=== PATIENT | female | born 1995 | race Two or more races ===

== ENCOUNTER 2024-03-16 02:18 | Emergency (ER) | payer MEDICAID, SELFPAY ==
--- NOTE | 2024-03-16 03:19 | EDNOTE_ITS ---
ED Female Urogenital RME/HPI General Chief complaint: Urogenital-Female Stated complaint: PAINFUL URINATION Time Seen by Provider: 03/16/24 03:14 Arrival date/time: 03/16/24 02:18 29F with no significant PMH presents to ED with 3 days of dysuria. Patient had about 2 weeks ago, but denies pelvic/flank pain and vaginal bleeding. Limitations: no limitations Related Data Previous Rx's ?Medication ?Instructions ?Recorded cefuroxime axetil 500 mg tablet 500 mg PO BID 7 days #14 tabs 03/16/24 Review of Systems Review of Systems Systems Reviewed: All systems reviewed, normal except as documented Constitutional Constitutional: Reports system reviewed and no additional complaints, except as documented, Denies fever(s) and Denies headache(s) ENT Ears, Nose, Mouth, and Throat: Denies disequilibrium and Denies headache(s) Cardiovascular Cardiovascular: Reports system reviewed and no additional complaints, except as documented, Denies chest pain and Denies dyspnea Respiratory Respiratory: Reports system reviewed and no additional complaints, except as documented, Denies cough and Denies dyspnea Gastrointestinal Gastrointestinal: Reports system reviewed and no additional complaints, except as documented, Denies abdominal pain, Denies nausea and Denies vomiting Genitourinary Genitourinary: Reports as per HPI and Reports dysuria Neurologic Neurologic: Reports system reviewed and no additional complaints, except as documented, Denies confusion, Denies disequilibrium and Denies headache(s) Psychiatric Psychiatric: Denies confusion Past Medical History Social History SMOKING STATUS: Never smoker ED Exam General Limitations: Present no limitations General appearance: Present alert and in no apparent distress Head Head exam: Present atraumatic Eye Eye exam: Present normal appearance, PERRL and EOMI ENT ENT exam: Present normal exam, normal oropharynx and mucous membranes moist Neck Neck exam: Present normal inspection, full ROM and trachea midline Chest Chest inspection: Present normal inspection and symmetric chest wall rise Respiratory Respiratory exam: Present normal lung sounds bilaterally Cardiovascular Cardiovascular exam: Present regular rate, normal rhythm and normal heart sounds Abdominal Exam Abdominal exam: Present soft and normal bowel sounds Extremities Exam Extremities exam: Present normal inspection and full ROM Back Exam Back exam: Present normal inspection and full ROM Neurological Exam Neurological exam: Present alert, oriented X3 and CN II-XII intact Psychiatric Psychiatric exam: Present normal affect and normal mood Skin Skin exam: Present warm, dry, intact and normal color Course Quality Measures none Orders Category Date Time Status Drug Screen,Urine Stat Lab 03/16/24 03:31 Completed Urinalysis, C/S if Indicated Stat Lab 03/16/24 03:31 Completed Urine Culture Stat Lab 03/16/24 03:31 Received cefuroxime axetiL [cefUROXime axetil] Med 03/16/24 04:07 Discontinued 500 mg PO X1 ONE Vital Signs Vital signs: Vital Signs Temperature 98.4 F 03/16/24 03:34 Pulse Rate 68 03/16/24 03:34 Respiratory Rate 18 03/16/24 03:34 Blood Pressure 127/87 H 03/16/24 03:34 Pulse Oximetry (%) 98 03/16/24 03:34 Oxygen Delivery Method Room Air 03/16/24 03:34 Urogenital - Female MDM Narrative MDM Narrative:: 29F with no significant PMH presents to ED with 3 days of dysuria. Patient had about 2 weeks ago, but denies pelvic/flank pain and vaginal bleeding. Physical exam reveals no flank tenderness. Patient is afebrile, calm, and alert. UA suggests UTI. Patient data External records reviewed:: [facility] previous records Clinical information provided by:: patient Social determinants that could affect healthcare access:: none Patient has the following chronic illnesses:: none How is presenting disease/condition affected by chronic disease/condition?: no chronic disease Evaluation data The following diagnostics were reviewed and interpreted by me:: lab results Lab and/or radiology exams considered but not ordered:: ordered Interpretation Summary: above Medications / Prescriptions Medications or Prescriptions considered but not ordered:: ordered Medication administrations:: Medication Administration History Discontinued Medications Cefuroxime Axetil (Cefuroxime Axetil 250 Mg Tablet) 500 mg PO X1 ONE Stop: 03/16/24 04:08 above Consultations Consultation(s) initiated? (list below): No Diagnosis Urogenital Female Differential Diagnosis: urinary tract infection, bacterial vaginosis, trichomoniasis, cervicitis, ovarian cyst, vaginitis, ruptured ovarian cyst, cyst of Bartholin's gland, cystitis and dysmenorrhea Most likely diagnosis given after review of the tests above:: UTI Admission Indicated Admission indicated?: not indicated Admission Request Was there a request for admission?: No Disposition Plan Disposition Plan: Discharge Discharge Attestation Discharge Attestation: The patient and all family members were given an opportunity to ask questions and understood the discharge instructions. Discharge instructions specifically effects, indications for sooner follow up or return to the emergency department, and the expected course of current diagnosis. Patient condition: Stable Discharge Plan Plan Patient Disposition: HOME (Self Care) Disposition Comment: Stable Prescriptions/Referrals Prescriptions/Med Rec: New cefuroxime axetil 500 mg tablet 500 mg PO BID 7 Days Qty: 14 0RF Problem List Clinical Impression: Urinary tract infection Patient/Caregiver Discharge Instructions Education Materials: ED CYSTITIS Female Adult Additional Instructions: Please follow-up with PCP within 24-48 hours and return immediately if symptoms worsen. Print Language: Tanzanian Stand Alone Forms: Patient Portal Info Letter RAINA/JERICA Supervising Physician RAINA/JERICA Supervising Physician: Dr. Smallwood
[2024-03-16 03:34] VITALS: BP 127/87; PULSE 68; RESP 18; TEMP 36.9; O2SAT 98
[2024-03-16 03:43] LABS: Collection Type, Urine Clean Catch
[2024-03-16 03:59] LABS: Bacteria,Urine 3+; Bilirubin,Urine Negative (Negative); Blood,Urine 3+ (Negative); Clarity,Urine Clear (Clear/Hazy); Color,Urine Yellow (Lt Yel-Yel); Culture Indicated,Urine Yes; Glucose, Urine Negative (Negative); Ketones,Urine Negative (Negative); Leukocyte Esterase,Urine Positive (Negative); Nitrite,Urine Negative (Negative); Protein,Urine Negative (Neg - Trace); RBC,Urine 34 /hpf (0-3); Specific Gravity,Urine 1.009 (1.001-1.035); Squamous Epithelial Cell,Urine 1 /hpf (0-5); Urobilinogen,Urine Negative mg/dL (0.0-1.0); WBC,Urine 38 /hpf (0-5)
[2024-03-16 04:02] LABS: Amphetamine/Methamp Scrn,U Negative (Negative); Barbiturate Screen,Urine Negative (Negative); Benzodiazepines Screen,Urine Negative (Negative); Benzoylecgonine Screen, Ur Negative (Negative); Fentanyl Screen,Urine Negative (Negative); Opiate Screen,Urine Negative (Negative); THC Screen,Urine Negative (Negative)
[2024-03-16] MEDS: cefuroxime axetiL 250 MG TABLET 500 MG PO (04:13)
[2024-03-16 04:18] VITALS: BMI 34.0
== END 2024-03-16 04:22 | disposition home or self-care (01) ==
LOC: SERX 06:24
PROVIDERS: Physician Assistant; Emergency Provider Emergency Medicine; PCP Family Medicine
DX: N39.0 Urinary tract infection, site not specified (principal)
CPT/HCPCS: 80307; 81001; 87077; 87086; 87186; 99283; A9270

== ENCOUNTER 2024-03-18 17:19 | Emergency (ER) | payer MEDICAID, SELFPAY ==
[2024-03-18 17:20] VITALS: BMI 32.0
[2024-03-18 17:38] VITALS: BP 125/90; PULSE 82; RESP 18; TEMP 36.9; O2SAT 97; BMI 36.3
--- NOTE | 2024-03-18 19:36 | PD.EDFMALE ---
ED Female Urogenital RME/HPI General Chief complaint: Urogenital-Female Stated complaint: PAIN WITH UA x 3 DAYS,FEELS SOMETHING IN VAGINA Time Seen by Provider: 03/18/24 18:27 Arrival date/time: 03/18/24 17:19 29F with no significant PMH presents to ED with 3 days of dysuria. Separately, patient feels like there's something in her vagina. Patient was here 3 days ago and diagnosed with UTI (registration has her under a different account and will merge them). UC showed E.coli sensitive to empiric ABX given to her. Patient also had a about 2 weeks ago. Limitations: no limitations Related Data Home Medications ?Medication ?Instructions ?Recorded ?Confirmed vit no.95-ferrous 1 tab PO QDAY 05/25/18 05/25/18 fumarate 28 mg-folic acid 800 mcg tablet () Previous Rx's ?Medication ?Instructions ?Recorded hydrocodone 5 mg-acetaminophen 325 1 tab PO Q6H PRN pain #10 tabs 06/01/18 mg tablet ([place]) ibuprofen 600 mg tablet 600 mg PO TID pain #20 tabs 06/01/18 acetaminophen 500 mg tablet 1,000 mg (2 x 500 mg) PO Q6H #30 11/28/23 (Tylenol Extra Strength) tabs diphenhydramine HCl 25 mg capsule 50 mg (2 x 25 mg) PO Q6H PRN 11/28/23 (Benadryl) allergy symptoms #10 caps ondansetron 4 mg disintegrating 4 mg PO Q8H PRN nausea and 11/28/23 tablet vomiting #10 tabs hydrocortisone 2.5 % topical cream 1 applic PA QDAY hemorrhoids #30 03/18/24 with perineal applicator grams (Anusol-HC) lidocaine 5 % topical ointment 1 applic topical BID PRN pain #30 03/18/24 grams Allergies Allergy/AdvReac Type Severity Reaction Status Date / Time No Known Allergies Allergy Verified 03/18/24 17:22 Review of Systems Review of Systems Systems Reviewed: All systems reviewed, normal except as documented Constitutional Constitutional: Reports system reviewed and no additional complaints, except as documented, Denies fever(s) and Denies headache(s) ENT Ears, Nose, Mouth, and Throat: Denies disequilibrium and Denies headache(s) Cardiovascular Cardiovascular: Reports system reviewed and no additional complaints, except as documented, Denies chest pain and Denies dyspnea Respiratory Respiratory: Reports system reviewed and no additional complaints, except as documented, Denies cough and Denies dyspnea Gastrointestinal Gastrointestinal: Reports system reviewed and no additional complaints, except as documented, Denies abdominal pain, Denies nausea and Denies vomiting Genitourinary Genitourinary: Reports as per HPI and Reports dysuria Neurologic Neurologic: Reports system reviewed and no additional complaints, except as documented, Denies confusion, Denies disequilibrium and Denies headache(s) Psychiatric Psychiatric: Denies confusion Past Medical History Past Medical History NEUROLOGIC: Negative Neurological Disorders or Seizures CARDIAC: Negative Cardiac Disorders or Congestive Heart Failure RESPIRATORY: Negative Chronic Obstructive Pulmonary Disease (COPD) GASTROINTESTINAL: Negative Gastrointestinal Disorders GENITOURINARY: Negative Genitourinary Disorders or Renal Disease MUSCULOSKELETAL: Negative Musculoskeletal Disorders ENDOCRINE: Negative Endocrine Disorders, Diabetes Mellitus Type 1 or Diabetes Mellitus Type 2 HEMATOLOGIC: Negative Blood Disorders OTHER HISTORY: Positive Chicken Pox (as child); Negative Autoimmune Disease, Blood Transfusions, Blood Transfusion Reaction or Anesthesia Reactions Family History FAMILY HISTORY: Negative Family Psychiatric Problems, Family Respiratory Disorders, Family Cardiac Disorders, Family Gastrointestinal Problems, Family Cancer, Family Surgery or Family Anesthesia Reaction Surgical History SURGICAL: Negative Section Social History SMOKING STATUS: Never smoker SECOND HAND EXPOSURE: No ED Exam General Limitations: Present no limitations General appearance: Present alert and in no apparent distress Head Head exam: Present atraumatic Eye Eye exam: Present normal appearance, PERRL and EOMI ENT ENT exam: Present normal exam, normal oropharynx and mucous membranes moist Neck Neck exam: Present normal inspection, full ROM and trachea midline Chest Chest inspection: Present normal inspection and symmetric chest wall rise Respiratory Respiratory exam: Present normal lung sounds bilaterally Cardiovascular Cardiovascular exam: Present regular rate, normal rhythm and normal heart sounds Abdominal Exam Abdominal exam: Present soft and normal bowel sounds External exam: Present other (prolapse) Extremities Exam Extremities exam: Present normal inspection and full ROM Back Exam Back exam: Present normal inspection and full ROM Neurological Exam Neurological exam: Present alert, oriented X3 and CN II-XII intact Psychiatric Psychiatric exam: Present normal affect and normal mood Skin Skin exam: Present warm, dry, intact and normal color Course Quality Measures none Orders Category Date Time Status Pelvic Exam X1 Care 03/18/24 18:28 Active Vital Signs Vital signs: Vital Signs Temperature 98.5 F 03/18/24 17:38 Pulse Rate 82 03/18/24 17:38 Respiratory Rate 18 03/18/24 17:38 Blood Pressure 125/90 H 03/18/24 17:38 Pulse Oximetry (%) 97 03/18/24 17:38 Oxygen Delivery Method Room Air 03/18/24 17:38 O2 at 97% on RA and WNLs Urogenital - Female MDM Narrative MDM Narrative:: 29F with no significant PMH presents to ED with 3 days of dysuria. Separately, patient feels like there's something in her vagina. Patient was here 3 days ago and diagnosed with UTI (registration has her under a different account and will merge them). UC showed E.coli sensitive to empiric ABX given to her. Patient also had a about 2 weeks ago. 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 Patient is afebrile, calm, and alert. [employer] Supervisor given. Patient counseled to keep taking ABX. Patient declines IM Rocephin as UTI symptoms are improving. Patient data External records reviewed:: [facility] previous records Clinical information provided by:: patient Social determinants that could affect healthcare access:: none Patient has the following chronic illnesses:: none How is presenting disease/condition affected by chronic disease/condition?: no chronic disease Evaluation data The following diagnostics were reviewed and interpreted by me:: other (specify) (none) Lab and/or radiology exams considered but not ordered:: not ordered Interpretation Summary: n/a Medications / Prescriptions Medications or Prescriptions considered but not ordered:: not ordered Medication administrations:: n/a Consultations Consultation(s) initiated? (list below): No Diagnosis Urogenital Female Differential Diagnosis: urinary tract infection, bacterial vaginosis, trichomoniasis, cervicitis, ovarian cyst, vaginitis, ruptured ovarian cyst, cyst of Bartholin's gland, cystitis, dysmenorrhea and other (UTI and vaginal prolapse) Most likely diagnosis given after review of the tests above:: UTI and vaginal prolapse Admission Indicated Admission indicated?: not indicated Admission Request Was there a request for admission?: No Disposition Plan Disposition Plan: Discharge Discharge Attestation Discharge Attestation: The patient and all family members were given an opportunity to ask questions and understood the discharge instructions. Discharge instructions specifically effects, indications for sooner follow up or return to the emergency department, and the expected course of current diagnosis. Patient condition: Stable Discharge Plan Plan Patient Disposition: HOME (Self Care) Disposition Comment: Stable Prescriptions/Referrals Prescriptions/Med Rec: New lidocaine 5 % ointment 1 applic topical BID PRN (Reason: pain) Qty: 30 0RF hydrocortisone [Anusol-HC] 2.5 % cream with perineal applicator 1 applic PA QDAY Qty: 30 0RF No Action PNV cmb#95-ferrous fumarate-FA [] 28 mg iron- 800 mcg Tablet 1 tab PO QDAY ibuprofen 600 mg tablet 600 mg PO TID MDD 6 Qty: 20 0RF hydrocodone-acetaminophen [[place]] 5-325 mg tablet 1 tab PO Q6H MDD 4 PRN (Reason: pain) Qty: 10 0RF diphenhydramine HCl [Benadryl] 25 mg capsule 50 mg PO Q6H PRN (Reason: allergy symptoms) Qty: 10 0RF acetaminophen [Tylenol Extra Strength] 500 mg tablet 1,000 mg PO Q6H Qty: 30 0RF ondansetron 4 mg tablet,disintegrating 4 mg PO Q8H PRN (Reason: nausea and vomiting) Qty: 10 0RF Problem List Clinical Impression: Prolapse of female pelvic organs, Hemorrhoid Patient/Caregiver Discharge Instructions Education Materials: Pelvic Organ Prolapse, Pelvic Organ Prolapse ..., Pelvic Organ Prolapse Surgery ..., ED Hemorrhoids Additional Instructions: Please follow-up with PCP/OBGYN within 24-48 hours and return immediately if symptoms worsen. Use steroid cream every day for symptoms. Use lidocaine cream 15 min before having bowel movement. Print Language: Vincentian Stand Alone Forms: Patient Portal Info Letter RAINA/JERICA Supervising Physician RAINA/JERICA Supervising Physician: Dr. Pickering
== END 2024-03-18 19:52 | disposition home or self-care (01) ==
LOC: SERX 19:59
PROVIDERS: Emergency Provider Emergency Medicine; PCP Family Medicine
DX: K64.9 Unspecified hemorrhoids (principal); N81.4 Uterovaginal prolapse, unspecified; N39.0 Urinary tract infection, site not specified
CPT/HCPCS: 99283

== ENCOUNTER 2024-04-08 15:53 | Emergency (ER) | payer MEDICAID, SELFPAY ==
[2024-04-08 15:56] VITALS: BMI 36.9
[2024-04-08 16:18] VITALS: BP 125/84; PULSE 60; RESP 16; TEMP 36.8; O2SAT 99
--- NOTE | 2024-04-08 16:28 | XR_ITS ---
Examination: Abdomen sonogram, Limited Date and time of exam: April 08, 2024 at 1635 hrs. Indications: Right upper abdominal pain and nausea beginning one week ago Technique: Real-time jorgensen scale transabdominal sonographic images of the upper abdomen obtained. Findings: 17 mm gallstone Gallbladder wall 0.3 cm Common bile duct 0.2 cm Pancreatic head 1.7 cm Liver 18.3 cm fatty infiltration no focal liver lesions Normal hepatopedal portal venous flow Patent IVC Impression: Cholelithiasis, negative for cholecystitis Mild hepatomegaly fatty liver
--- NOTE | 2024-04-08 16:29 | EDRME_ITS ---
Rapid Medical Screening Exam RME Arrival date/time: 04/08/24 15:53 29-year-old female presents emergency department today with 2 separate complaints patient reports pain in the right upper quadrant ports history of gallstones during patient approximately 1 month patient also reports that she is having pain at her site which she has followed up with her [employer] SUPERVISOR already Chief Complaint: Abdominal Pain Time Seen by Provider: 04/08/24 16:19 Vital signs: Vital Signs Temperature 98.2 F 04/08/24 16:18 Pulse Rate 60 04/08/24 16:18 Respiratory Rate 16 04/08/24 16:18 Blood Pressure 125/84 04/08/24 16:18 Pulse Oximetry (%) 99 04/08/24 16:18 Oxygen Delivery Method Room Air 04/08/24 16:18
[2024-04-08 17:00] LABS: Basophils # (Auto) 0.1 Thou/mm3 (0.0-0.2); Basophils % (Auto) 1 % (0-2.5); Eosinophils # (Auto) 0.4 Thou/mm3 (0.0-0.5); Eosinophils % (Auto) 4 % (0-10); Hematocrit 38.4 % (36.0-46.0); Hemoglobin 12.6 g/dL (12.0-16.0); Immature Granulocytes % (Auto) 0 % (0-0); Immature Granulocytes Auto 0.03 Thou/mm3 (0.00-0.00); Lymphocytes # (Auto) 4.9 Thou/mm3 (1.0-4.8); Lymphocytes % (Auto) 45 % (10-50); Mean Corpuscular HGB Conc 32.8 g/dl (31.0-37.0); Mean Corpuscular Hemoglobin 28.3 pg (25.0-35.0); Mean Corpuscular Volume 86 fL (80-100); Monocytes # (Auto) 0.6 Thou/mm3 (0.0-0.8); Monocytes % (Auto) 6 % (0-12); Neutrophils % (Auto) 45 % (37-80); Nucleated Red Blood Cell % 0 /100 WBC (0); Platelet Count 330 Thou/mm3 (140-440); RDW Standard Deviation 45.4 fL (36.4-46.3); Red Blood Count 4.46 Miln/mm3 (4.00-5.20)
--- NOTE | 2024-04-08 17:12 | EDNOTE_ITS ---
ED Abdominal Pain RME/HPI General Chief Complaint: Abdominal Pain Stated complaint: PAIN TO SITE, GALLBLADDER PAIN Time seen by provider: 04/08/24 16:19 Arrival date/time: 04/08/24 15:53 RME / HPI RME / HPI narrative: 29-year-old female presents emergency department today with 2 separate complaints patient reports pain in the right upper quadrant ports history of gallstones during patient approximately 1 month patient also reports that she is having pain at her site which she has followed up with her [facility]IOR [facility] A[facility] SPECIALIST already. Patient denies any fever denies any vomiting denies any other complaints. She had her section done in [place]. Related Data Home Medications ?Medication ?Instructions ?Recorded ?Confirmed vit no.95-ferrous 1 tab PO QDAY 05/25/18 05/25/18 fumarate 28 mg-folic acid 800 mcg tablet () Previous Rx's ?Medication ?Instructions ?Recorded hydrocodone 5 mg-acetaminophen 325 1 tab PO Q6H PRN pain #10 tabs 06/01/18 mg tablet ([place]) ibuprofen 600 mg tablet 600 mg PO TID pain #20 tabs 06/01/18 acetaminophen 500 mg tablet 1,000 mg (2 x 500 mg) PO Q6H #30 11/28/23 (Tylenol Extra Strength) tabs diphenhydramine HCl 25 mg capsule 50 mg (2 x 25 mg) PO Q6H PRN 11/28/23 (Benadryl) allergy symptoms #10 caps ondansetron 4 mg disintegrating 4 mg PO Q8H PRN nausea and 11/28/23 tablet vomiting #10 tabs hydrocortisone 2.5 % topical cream 1 applic IN QDAY hemorrhoids #30 03/18/24 with perineal applicator grams (Anusol-HC) lidocaine 5 % topical ointment 1 applic topical BID PRN pain #30 03/18/24 grams cefuroxime axetil 500 mg tablet 500 mg PO BID #14 tabs 04/08/24 dicyclomine 20 mg tablet 20 mg PO TID PRN abdominal pain 04/08/24 #20 tabs Allergies Allergy/AdvReac Type Severity Reaction Status Date / Time No Known Allergies Allergy Verified 04/08/24 15:55 Review of Systems Review of Systems Narrative Review of Systems: Review of system reviewed and within normal limits except mentioned in HPI ED Exam Narrative Physical exam: VITAL SIGNS: Reviewed. GENERAL APPEARANCE: Alert and interactive, follows commands, no acute distress, HEAD AND FACE: Non-traumatic. ENT: PERRL, pink conjunctivitis, eyelid no trauma, Mucous membrane moist. NECK: Supple, nontender, no nuchal rigidity. CHEST: No tenderness, no crepitus, no paradoxical movement, no retractions. LUNGS: Clear, well ventilated, symmetric, no rales, no wheezing, no ronchi, no stridor, good breath sounds bilaterally. HEART: Regular rate, regular rhythm, no murmur, no gallops. ABDOMEN: Soft, positive bowel sounds, nondistended, no guarding, right upper quadrant tenderness, no rebound, no masses, RECTAL: Deferred. GENITAL: Deferred. NEUROLOGICAL: Gross motor function intact sensory function intact, Appropriate for age. MUSCULOSKELETAL: low back nontender, full range of motion. EXTREMITIES: Nontender, full range of motion. SKIN: Color pink, dry, no rash, no lacerations, no abrasions, no contusions. LYMPHATICS: Deferred. Course Quality Measures none Orders Category Date Time Status US gall bladder Stat Exams 04/08/24 16:28 Completed CBC Stat Lab 04/08/24 16:48 Completed Comprehensive Metabolic Panel Stat Lab 04/08/24 16:48 Completed HCG Qualitative,Urine Stat Lab 04/08/24 17:05 Completed Lipase Stat Lab 04/08/24 16:48 Completed UA, C/S IF [Urinalysis, C/S if Indicated] Stat Lab 04/08/24 17:05 Completed Urine Culture Stat Lab 04/08/24 17:05 Received Dicyclomine [Bentyl] Med 04/08/24 17:20 Discontinued 20 mg PO X1 ONE Ketorolac Inj [Toradol Inj] Med 04/08/24 17:20 Discontinued 30 mg IM X1 ONE cephALEXin [Keflex] Med 04/08/24 18:33 Discontinued 500 mg PO X1 ONE Vital Signs Vital signs: Vital Signs Temperature 98.2 F 04/08/24 16:18 Pulse Rate 60 04/08/24 16:18 Respiratory Rate 16 04/08/24 16:18 Blood Pressure 125/84 04/08/24 16:18 Pulse Oximetry (%) 99 04/08/24 16:18 Oxygen Delivery Method Room Air 04/08/24 16:18 Abdominal Pain MDM MDM Narrative MDM Narrative:: 29-year-old female presents emergency department today with 2 separate complaints patient reports pain in the right upper quadrant ports history of gallstones during patient approximately 1 month patient also reports that she is having pain at her site which she has followed up with her [facility] AFFA[facility] SPECIALIST already. Patient denies any fever denies any vomiting denies any other complaints. She had her section done in [place]. Patient data External records reviewed:: None Clinical information provided by:: patient Social determinants that could affect healthcare access:: none Patient has the following chronic illnesses:: None How is presenting disease/condition affected by chronic disease/condition?: no chronic disease Evaluation data The following diagnostics were reviewed and interpreted by me:: lab results and radiology exam(s) Lab and/or radiology exams considered but not ordered:: None Interpretation Summary: Patient tested positive for UTI. Ultrasound of the gallbladder showed cholelithiasis with no sign of acute cholecystitis. Results discussed with the patient. Medications / Prescriptions Medications or Prescriptions considered but not ordered:: None Medication administrations:: Medication Administration History Discontinued Medications Cephalexin HCl (Cephalexin 250 Mg Capsule) 500 mg PO X1 ONE Stop: 04/08/24 18:34 Dicyclomine HCl (Dicyclomine 10 Mg Capsule) 20 mg PO X1 ONE Stop: 04/08/24 17:21 Last Admin: 04/08/24 17:40 Dose: 20 mg Documented By: MEJIA Ketorolac Tromethamine (Ketorolac Inj 60 Mg/2 Ml Vial) 30 mg IM X1 ONE Stop: 04/08/24 17:21 Last Admin: 04/08/24 17:41 Dose: 30 mg Documented By: MEJIA Toradol, Bentyl and Keflex Consultations Consultation(s) initiated? (list below): No Diagnosis Differential diagnosis abdominal pain: abdominal pain, calculus of kidney and other (: Cholelithiasis, UTI) Most likely diagnosis given after review of the tests above:: Cholelithiasis, UTI Admission Indicated Admission indicated?: not indicated Admission Request Was there a request for admission?: No Admission Attestation Admission request attestation: Stable Disposition Plan Disposition Plan: Discharge Discharge Attestation Discharge Attestation: The patient was given an opportunity to ask questions and understood the discharge instructions. Discharge instructions specifically effects, indications for sooner follow up or return to the emergency department, and the expected course of current diagnosis. Patient condition: Stable Discharge Plan Plan Patient Disposition: HOME (Self Care) Disposition Comment: stable Prescriptions/Referrals Prescriptions/Med Rec: New cefuroxime axetil 500 mg tablet 500 mg PO BID Qty: 14 0RF dicyclomine 20 mg tablet 20 mg PO TID PRN (Reason: abdominal pain) Qty: 20 0RF No Action PNV cmb#95-ferrous fumarate-FA [] 28 mg iron- 800 mcg Tablet 1 tab PO QDAY ibuprofen 600 mg tablet 600 mg PO TID MDD 6 Qty: 20 0RF hydrocodone-acetaminophen [[place]] 5-325 mg tablet 1 tab PO Q6H MDD 4 PRN (Reason: pain) Qty: 10 0RF diphenhydramine HCl [Benadryl] 25 mg capsule 50 mg PO Q6H PRN (Reason: allergy symptoms) Qty: 10 0RF acetaminophen [Tylenol Extra Strength] 500 mg tablet 1,000 mg PO Q6H Qty: 30 0RF ondansetron 4 mg tablet,disintegrating 4 mg PO Q8H PRN (Reason: nausea and vomiting) Qty: 10 0RF lidocaine 5 % ointment 1 applic topical BID PRN (Reason: pain) Qty: 30 0RF hydrocortisone [Anusol-HC] 2.5 % cream with perineal applicator 1 applic IN QDAY Qty: 30 0RF Referrals: Kem Wynn MD [Primary Care Provider] - In 1 week Problem List Clinical Impression: Gallstone, UTI (urinary tract infection) Patient/Caregiver Discharge Instructions Discharge Activity: activity as tolerated Education Materials: What Are Gallstones Additional Instructions: Thank you for the opportunity for serving you today. You are stable for discharged . You are advised to: Follow-up with your PCP in 1 to 2 days Return to ED for worsening of symptoms Increase oral fluids Take medication as prescribed Print Language: Greenlandic Stand Alone Forms: Layne Award Info., Patient Portal Info Letter PA/JERICA Supervising Physician RAINA/JERICA Supervising Physician: MD Ansley
[2024-04-08 17:17] LABS: Collection Type, Urine Clean Catch
[2024-04-08 17:20] LABS: Alanine Aminotransferase 23 U/L (10-49); Albumin, Serum 4.1 gm/dL (3.5-5.0); Albumin/Globulin Ratio 1.5 (1.2-2.2); Alkaline Phosphatase 84 U/L (46-116); Anion Gap 8 (7-16); Aspartate Amino Transferase 16 U/L (0-34); BUN/Creatinine Ratio 19 Ratio (12-20); Bilirubin,Total 0.2 mg/dL (0.3-1.2); Blood Urea Nitrogen 13 mg/dL (9-23); Carbon Dioxide 25.3 mMol/L (20.0-31.0); Chloride 108 mMol/L (98-107); Creatinine (Component) 0.7 mg/dL (0.6-1.3); Estimated Creatinine Clearance 123.8 mL/min (>60); Globulin 2.7 gm/dL (2.3-3.5); Glucose 80 mg/dL (74-106); Lipase 61 U/L (12-53); Osmolality,Calculated 280 (275-295); Potassium 4.1 mMol/L (3.4-5.1); Sodium 141 mMol/L (136-145); Total Protein 6.8 gm/dL (5.7-8.2); eGFR > 60 See Note
[2024-04-08 17:31] LABS: Amorphous Crystals,Urine Present (Absent); Bacteria,Urine 3+; Bilirubin,Urine Negative (Negative); Blood,Urine Negative (Negative); Clarity,Urine Turbid (Clear/Hazy); Color,Urine Yellow (Lt Yel-Yel); Culture Indicated,Urine Yes; Glucose, Urine Negative (Negative); Ketones,Urine Negative (Negative); Leukocyte Esterase,Urine Positive (Negative); Nitrite,Urine Negative (Negative); Protein,Urine Trace (Neg - Trace); RBC,Urine 3 /hpf (0-3); Specific Gravity,Urine 1.023 (1.001-1.035); Squamous Epithelial Cell,Urine 10 /hpf (0-5); Urobilinogen,Urine Negative mg/dL (0.0-1.0); WBC,Urine 16 /hpf (0-5)
[2024-04-08 17:33] LABS: HCG Qualitative,Urine Negative
[2024-04-08] MEDS: DICYCLOMINE 10 MG CAPSULE 20 MG PO (17:40)
[2024-04-08] MEDS: KETOROLAC INJ 60 MG/2 ML VIAL 30 MG IM (17:41)
[2024-04-08] MEDS: cephALEXin 250 MG CAPSULE 500 MG PO (19:03)
== END 2024-04-08 19:06 | disposition home or self-care (01) ==
PROVIDERS: Nurse Practitioner Primary Care; Emergency Provider Emergency Medicine; PCP Family Medicine
DX: K80.20 Calculus of gallbladder without cholecystitis without obstruction (principal); N39.0 Urinary tract infection, site not specified
CPT/HCPCS: 36415; 76705; 80053; 81001; 81025; 83690; 85025; 87086; 96372; 99284; J1885; A9270

== ENCOUNTER 2024-05-18 18:46 | Emergency (ER) | payer MEDICAID, SELFPAY ==
[2024-05-18 19:20] VITALS: BP 121/78; PULSE 63; RESP 16; TEMP 37.1; O2SAT 99; BMI 36.3
[2024-05-18] MEDS: ACETAMINOPHEN 500 MG TABLET 1000 MG PO (19:29)
[2024-05-18] MEDS: MAGNESIUM CITRATE 300 ML BTL PO (19:31)
--- NOTE | 2024-05-18 21:29 | PD.EDABDPN ---
ED Abdominal Pain RME/HPI General Chief Complaint: Abdominal Pain Stated complaint: NO BM IN 10 DAYS Time seen by provider: 05/18/24 19:21 Arrival date/time: 05/18/24 18:46 29F with no significant PMH presents to ED with 1 week of no BM. Patient went to PCP who gave lactulose, which provided minimal relief. Limitations: no limitations Related Data Home Medications ?Medication ?Instructions ?Recorded ?Confirmed vit no.95-ferrous 1 tab PO QDAY 05/25/18 05/25/18 fumarate 28 mg-folic acid 800 mcg tablet () Previous Rx's ?Medication ?Instructions ?Recorded hydrocodone 5 mg-acetaminophen 325 1 tab PO Q6H PRN pain #10 tabs 06/01/18 mg tablet ([place]) ibuprofen 600 mg tablet 600 mg PO TID pain #20 tabs 06/01/18 acetaminophen 500 mg tablet 1,000 mg (2 x 500 mg) PO Q6H #30 11/28/23 (Tylenol Extra Strength) tabs diphenhydramine HCl 25 mg capsule 50 mg (2 x 25 mg) PO Q6H PRN 11/28/23 (Benadryl) allergy symptoms #10 caps ondansetron 4 mg disintegrating 4 mg PO Q8H PRN nausea and 11/28/23 tablet vomiting #10 tabs hydrocortisone 2.5 % topical cream 1 applic OR QDAY hemorrhoids #30 03/18/24 with perineal applicator grams (Anusol-HC) lidocaine 5 % topical ointment 1 applic topical BID PRN pain #30 03/18/24 grams cefuroxime axetil 500 mg tablet 500 mg PO BID #14 tabs 04/08/24 dicyclomine 20 mg tablet 20 mg PO TID PRN abdominal pain 04/08/24 #20 tabs Allergies Allergy/AdvReac Type Severity Reaction Status Date / Time No Known Allergies Allergy Verified 05/18/24 18:51 Review of Systems Review of Systems Systems Reviewed: All systems reviewed, normal except as documented Constitutional Constitutional: Reports system reviewed and no additional complaints, except as documented, Denies fever(s) and Denies headache(s) ENT Ears, Nose, Mouth, and Throat: Denies disequilibrium and Denies headache(s) Cardiovascular Cardiovascular: Reports system reviewed and no additional complaints, except as documented, Denies chest pain and Denies dyspnea Respiratory Respiratory: Reports system reviewed and no additional complaints, except as documented, Denies cough and Denies dyspnea Gastrointestinal Gastrointestinal: Reports system reviewed and no additional complaints, except as documented, Reports as per HPI, Denies abdominal pain, Reports constipation, Denies nausea and Denies vomiting Neurologic Neurologic: Reports system reviewed and no additional complaints, except as documented, Denies confusion, Denies disequilibrium and Denies headache(s) Psychiatric Psychiatric: Denies confusion Past Medical History Past Medical History NEUROLOGIC: Negative Neurological Disorders or Seizures CARDIAC: Negative Cardiac Disorders or Congestive Heart Failure RESPIRATORY: Negative Chronic Obstructive Pulmonary Disease (COPD) GASTROINTESTINAL: Negative Gastrointestinal Disorders GENITOURINARY: Negative Genitourinary Disorders or Renal Disease MUSCULOSKELETAL: Negative Musculoskeletal Disorders ENDOCRINE: Negative Endocrine Disorders, Diabetes Mellitus Type 1 or Diabetes Mellitus Type 2 HEMATOLOGIC: Negative Blood Disorders OTHER HISTORY: Positive Chicken Pox (as child); Negative Autoimmune Disease, Blood Transfusions, Blood Transfusion Reaction or Anesthesia Reactions Family History FAMILY HISTORY: Negative Family Psychiatric Problems, Family Respiratory Disorders, Family Cardiac Disorders, Family Gastrointestinal Problems, Family Cancer, Family Surgery or Family Anesthesia Reaction Surgical History SURGICAL: Negative Section Social History SMOKING STATUS: Light (< 1 pack/day) SECOND HAND EXPOSURE: No ED Exam General Limitations: Present no limitations General appearance: Present alert and in no apparent distress Head Head exam: Present atraumatic Eye Eye exam: Present normal appearance, PERRL and EOMI ENT ENT exam: Present normal exam, normal oropharynx and mucous membranes moist Neck Neck exam: Present normal inspection, full ROM and trachea midline Chest Chest inspection: Present normal inspection and symmetric chest wall rise Respiratory Respiratory exam: Present normal lung sounds bilaterally Cardiovascular Cardiovascular exam: Present regular rate, normal rhythm and normal heart sounds Abdominal Exam Abdominal exam: Present soft and normal bowel sounds Extremities Exam Extremities exam: Present normal inspection and full ROM Back Exam Back exam: Present normal inspection and full ROM Neurological Exam Neurological exam: Present alert, oriented X3 and CN II-XII intact Psychiatric Psychiatric exam: Present normal affect and normal mood Skin Skin exam: Present warm, dry, intact and normal color Course Quality Measures none Orders Category Date Time Status Enema Administration NOW Care 05/18/24 19:21 Completed Acetaminophen Tab [Tylenol ES Tab] Med 05/18/24 19:21 Discontinued 1,000 mg PO X1 ONE Magnesium Citrate Liqd [Citrate of Magnesia Liqd] Med 05/18/24 19:21 Discontinued 300 ml PO X1 ONE Vital Signs Vital signs: Vital Signs Temperature 98.7 F 05/18/24 19:20 Pulse Rate 63 05/18/24 19:20 Respiratory Rate 16 05/18/24 19:20 Blood Pressure 121/78 05/18/24 19:20 Pulse Oximetry (%) 99 05/18/24 19:20 Oxygen Delivery Method Room Air 05/18/24 19:20 O2 at 99% on RA and WNLs Abdominal Pain MDM MDM Narrative MDM Narrative:: 29F with no significant PMH presents to ED with 1 week of no BM. Patient went to PCP who gave lactulose, which provided minimal relief. Physical exam reveals no ab tenderness. Patient is afebrile, calm, and alert. Patient wants to have BM at home. Will try mag citrate and saline enema (to take home with instructions). Patient data External records reviewed:: [facility] previous records Clinical information provided by:: patient Social determinants that could affect healthcare access:: none Patient has the following chronic illnesses:: none How is presenting disease/condition affected by chronic disease/condition?: no chronic disease Evaluation data The following diagnostics were reviewed and interpreted by me:: other (specify) (none) Lab and/or radiology exams considered but not ordered:: not ordered Interpretation Summary: n/a Medications / Prescriptions Medications or Prescriptions considered but not ordered:: ordered Medication administrations:: Medication Administration History Discontinued Medications Acetaminophen (Acetaminophen 500 Mg Tablet) 1,000 mg PO X1 ONE Stop: 05/18/24 19:22 Last Admin: 05/18/24 19:29 Dose: 1,000 mg Documented By: Magnesium Citrate (Magnesium Citrate 300 Ml Btl) 300 ml PO X1 ONE Stop: 05/18/24 19:22 Last Admin: 05/18/24 19:31 Dose: 300 ml Documented By: above Consultations Consultation(s) initiated? (list below): No Diagnosis Differential diagnosis abdominal pain: abdominal pain, acute appendicitis, calculus of kidney, constipation, diverticulitis, endometriosis, gastroenteritis, pancreatitis and small bowel obstruction Most likely diagnosis given after review of the tests above:: constipation Admission Indicated Admission indicated?: not indicated Admission Request Was there a request for admission?: No Disposition Plan Disposition Plan: Discharge Discharge Attestation Discharge Attestation: The patient and all family members were given an opportunity to ask questions and understood the discharge instructions. Discharge instructions specifically effects, indications for sooner follow up or return to the emergency department, and the expected course of current diagnosis. Patient condition: Stable Discharge Plan Plan Patient Disposition: HOME (Self Care) Disposition Comment: Stable Prescriptions/Referrals Prescriptions/Med Rec: No Action PNV cmb#95-ferrous fumarate-FA [] 28 mg iron- 800 mcg Tablet 1 tab PO QDAY ibuprofen 600 mg tablet 600 mg PO TID MDD 6 Qty: 20 0RF hydrocodone-acetaminophen [[place]] 5-325 mg tablet 1 tab PO Q6H MDD 4 PRN (Reason: pain) Qty: 10 0RF cefuroxime axetil 500 mg tablet 500 mg PO BID Qty: 14 0RF dicyclomine 20 mg tablet 20 mg PO TID PRN (Reason: abdominal pain) Qty: 20 0RF diphenhydramine HCl [Benadryl] 25 mg capsule 50 mg PO Q6H PRN (Reason: allergy symptoms) Qty: 10 0RF acetaminophen [Tylenol Extra Strength] 500 mg tablet 1,000 mg PO Q6H Qty: 30 0RF ondansetron 4 mg tablet,disintegrating 4 mg PO Q8H PRN (Reason: nausea and vomiting) Qty: 10 0RF lidocaine 5 % ointment 1 applic topical BID PRN (Reason: pain) Qty: 30 0RF hydrocortisone [Anusol-HC] 2.5 % cream with perineal applicator 1 applic OR QDAY Qty: 30 0RF Problem List Clinical Impression: Constipation Patient/Caregiver Discharge Instructions Education Materials: ED Constipation (Adult) Additional Instructions: Please follow-up with PCP within 24-48 hours and return immediately if symptoms worsen. Print Language: Nepalese Stand Alone Forms: Patient Portal Info Letter PA/TOBACCO STEMMER Supervising Physician PA/TOBACCO STEMMER Supervising Physician: Dr. Montes
== END 2024-05-18 19:32 | disposition home or self-care (01) ==
LOC: SERX 19:39
PROVIDERS: Emergency Provider Emergency Medicine; PCP Nurse Practitioner Primary Care
DX: K59.00 Constipation, unspecified (principal)
CPT/HCPCS: 99283; A9270

== ENCOUNTER 2024-07-22 18:45 | Emergency (ER) | payer MEDICAID, SELFPAY ==
[2024-07-22 19:23] VITALS: BP 133/89; PULSE 84; RESP 18; TEMP 37.2; O2SAT 98; BMI 35.3
--- NOTE | 2024-07-22 19:49 | XR_ITS ---
Examination: AP chest single view TECHNIQUE: AP portable upright chest single view Exam date time: July 22, 20242003 hours INDICATIONS: Shortness of breath today. FINDINGS: Normal heart size. Lungs are clear. Osseous structures are intact. IMPRESSION: No active disease.
--- NOTE | 2024-07-22 19:50 | EDNOTE_ITS ---
<Statement entered by Sheri May MD - 07/23/24 04:25> As co-signing physician, I was present and available for consult prn. I concur with the plan and care as documented by the midlevel provider. ED SOB =RME/HPI General Chief Complaint: Shortness of Breath/Dyspnea Stated Complaint: SOB, CHEST PRESSURE Time Seen by Provider: 07/22/24 19:37 Arrival date/time: 07/22/24 18:45 RME / HPI RME / HPI Narrative: 29-year-old female patient with no significant medical history, came in for evaluation regarding shortness of breath and chest discomfort. Everything happened since last night after patient inhaled a toxic substance while opening a can bottle. Patient is denying any cough. Denies any chest pain denies any fever denies any other complaints no medication was taken prior to arrival. Related Data Home Medications ?Medication ?Instructions ?Recorded ?Confirmed vit no.95-ferrous 1 tab PO QDAY 05/25/18 03/0 09/07 fumarate 28 mg-folic acid 800 mcg tablet () Previous Rx's ?Medication ?Instructions ?Recorded hydrocodone 5 mg-acetaminophen 325 1 tab PO Q6H PRN pa in #10 tabs 06/01/18 mg tablet ([place]) ibuprofen 600 mg tablet 600 mg PO TID pain #20 tabs 06/01/18 acetaminophen 500 mg tablet 1,000 mg (2 x 500 mg) PO Q 6H #30 11/28/23 (Tylenol Extra Strength) tabs diphenhydramine HCl 25 mg capsule 50 mg (2 x 25 mg) PO Q6H PRN 11/28/23 (Benadryl) allergy symptoms #10 caps ondansetron 4 mg disintegrating 4 mg PO Q8H PRN nausea and 11/28/23 tablet vomiting #10 tabs hydrocortisone 2.5 % topical cream 1 applic FL QDAY he morrhoids #30 03/18/24 with perineal applicator grams (Anusol-HC) lidocaine 5 % topical ointment 1 applic topical BID FL N pain #30 03/18/24 grams cefuroxime axetil 500 mg tablet 500 mg PO BID #14 tabs 04/08/24 dicyclomine 20 mg tablet 20 mg PO TID PRN abdominal p ain 04/08/24 #20 tabs albuterol sulfate 90 mcg/actuation 2 inh inhalation Q6 H PRN shortness 07/22/24 aerosol inhaler of breath or wheezing #8.5 g boris prednisone 50 mg tablet 50 mg PO QDAY #3 tabs Allergies Allergy/AdvReac Type Severity Reaction Status Date / Time No Known Allergies Allergy Verified 05/18/24 18:51 Review of Systems Review of Systems Narrative Review of Systems: Review of system reviewed and within normal limits except mentioned in HPI ED Exam Narrative Physical exam: VITAL SIGNS: Reviewed. GENERAL APPEARANCE: Alert and interactive, follows commands, no acute distress, HEAD AND FACE: Non-traumatic. ENT: PERRL, pink conjunctivitis, eyelid no trauma, Mucous membrane moist. NECK: Supple, nontender, no nuchal rigidity. CHEST: No tenderness, no crepitus, no paradoxical movement, no retractions. LUNGS: Clear, well ventilated, symmetric, no rales, no wheezing, no ronchi, no stridor, good breath sounds bilaterally. HEART: Regular rate, regular rhythm, no murmur, no gallops. ABDOMEN: Soft, positive bowel sounds, nondistended, no guarding, nontender, no rebound, no masses, RECTAL: Deferred. GENITAL: Deferred. NEUROLOGICAL: Gross motor function intact sensory function intact, Appropriate for age. MUSCULOSKELETAL: low back nontender, full range of motion. EXTREMITIES: Nontender, full range of motion. SKIN: Color pink, dry, no rash, no lacerations, no abrasions, no contusions. LYMPHATICS: Deferred. Course Quality Measures none Orders Category Date Time Status XR chest 1V Stat Exams 07/22/24 19:49 Completed predniSONE Med 07/22/24 19:49 Discontinued 60 mg PO X1 ONE Vital Signs Vital signs: Vital Signs Temperature 98.9 F 07/22/24 19:23 Pulse Rate 84 07/22/24 19:23 Respiratory Rate 18 07/22/24 19:23 Blood Pressure 133/89 H 07/22/24 19:23 Pulse Oximetry (%) 98 07/22/24 19:23 Oxygen Delivery Method Room Air 07/22/24 19:23 Shortness of Breath / Dyspnea MDM Narrative MDM Narrative:: 29-year-old female patient with no significant medical history, came in for evaluation regarding shortness of breath and chest discomfort. Everything happened since last night after patient inhaled a toxic substance while opening a can bottle. Patient is denying any cough. Denies any chest pain denies any fever denies any other complaints no medication was taken prior to arrival. I personally reviewed and interpreted the x-ray of this patient. There is no acute abnormalities found, no infiltrates no pneumothorax no hemothorax normal chest x-ray. Review of other structures was without significant abnormal findings also. I additionally reviewed the radiologist report and agree with the interpretation. Patient was given prednisone with complete resolution of symptoms Patient appears nontoxic and hemodynamically stable. Patient discharged home and instructed to follow-up with primary care provider in 24 to 48 hours. Instructed to return to the emergency department immediately if worsening of symptoms Patient data External records reviewed:: None Clinical information provided by:: patient Social determinants that could affect healthcare access:: none Patient has the following chronic illnesses:: None How is presenting disease/condition affected by chronic disease/condition?: no chronic disease Evaluation data The following diagnostics were reviewed and interpreted by me:: radiology exam(s) Lab and/or radiology exams considered but not ordered:: None Interpretation Summary: See results MDM Medications / Prescriptions Medications or Prescriptions considered but not ordered:: None Medication administrations:: Medication Administration History Discontinued Medications Prednisone (Prednisone 20 Mg Tablet) 60 mg PO X1 ONE Stop: 07/22/24 19:50 Last Admin: 07/22/24 19:58 Dose: 60 mg Documented By: MEJIA Prednisone Consultations Consultation(s) initiated? (list below): No Diagnosis Shortness of Breath Differential Diagnosis: community acquired pneumonia and asthma with exacerbation Most likely diagnosis given after review of the tests above:: Shortness of breath Admission Indicated Admission indicated?: not indicated Admission Request Was there a request for admission?: No Disposition Plan Disposition Plan: Discharge Discharge Attestation Discharge Attestation: The patient and all family members were given an opportunity to ask questions and understood the discharge instructions. Discharge instructions specifically effects, indications for sooner follow up or return to the emergency department, and the expected course of current diagnosis. Patient condition: Stable Discharge Plan Plan Patient Disposition: HOME (Self Care) Discharge Disposition comment: Stable Prescriptions/Referrals Prescriptions/Med Rec: New prednisone 50 mg tablet 50 mg PO QDAY Qty: 3 0RF albuterol sulfate 90 mcg/actuation HFA aerosol inhaler 2 inh inhalation Q6H PRN (Reason: shortness of breath or wheezing) Qty: 8.5 0RF No Action PNV cmb#95-ferrous fumarate-FA [] 28 mg iron- 800 mcg Tablet 1 tab PO QDAY ibuprofen 600 mg tablet 600 mg PO TID MDD 6 Qty: 20 0RF hydrocodone-acetaminophen [[place]] 5-325 mg tablet 1 tab PO Q6H MDD 4 PRN (Reason: pain) Qty: 10 0RF cefuroxime axetil 500 mg tablet 500 mg PO BID Qty: 14 0RF dicyclomine 20 mg tablet 20 mg PO TID PRN (Reason: abdominal pain) Qty: 20 0RF diphenhydramine HCl [Benadryl] 25 mg capsule 50 mg PO Q6H PRN (Reason: allergy symptoms) Qty: 10 0RF acetaminophen [Tylenol Extra Strength] 500 mg tablet 1,000 mg PO Q6H Qty: 30 0RF ondansetron 4 mg tablet,disintegrating 4 mg PO Q8H PRN (Reason: nausea and vomiting) Qty: 10 0RF lidocaine 5 % ointment 1 applic topical BID PRN (Reason: pain) Qty: 30 0RF hydrocortisone [Anusol-HC] 2.5 % cream with perineal applicator 1 applic FL QDAY Qty: 30 0RF Referrals: No Primary/Family,Physician [Primary Care Provider] - In 1 week Problem List Clinical Impression: Shortness of breath Patient/Caregiver Discharge Instructions Discharge Activity: activity as tolerated Education Materials: ED Shortness of Breath (Dyspnea) Additional Instructions: Thank you for the opportunity for serving you today. You are stable for discharged . You are advised to: Follow-up with your PCP in 1 to 2 days Return to ED for worsening of symptoms Increase oral fluids Take medication as prescribed Print Language: Welsh Stand Alone Forms: Layne Award Info., Patient Portal Info Letter PA/[employer] Supervising Physician RAINA/JERICA Supervising Physician: MD Lalo
[2024-07-22] MEDS: predniSONE 20 MG TABLET 60 MG PO (19:58)
== END 2024-07-22 21:52 | disposition home or self-care (01) ==
PROVIDERS: Emergency Provider Emergency Medicine
DX: R06.02 Shortness of breath (principal); R07.89 Other chest pain
CPT/HCPCS: 71045; 99283; J7512

== ENCOUNTER 2024-09-15 13:07 | Emergency (ER) | payer MEDICAID, SELFPAY ==
[2024-09-15 13:18] VITALS: BP 126/86; PULSE 67; RESP 20; TEMP 37.1; O2SAT 99
--- NOTE | 2024-09-15 13:29 | XR_ITS ---
Examination: CT abdomen and pelvis without contrast. Coronal 3-D reconstructions. Sagittal 2-D reconstructions. Date and time of exam:September 15, 2024 1847 hours INDICATIONS: Left lower abdominal pain beginning 3 days ago CTDI: vol (mGy): 13.8 DLP: (mGycm): 777 Technique: Axial images of the abdomen have been obtained, 3 mm slice thickness Intravenous contrast material has not been administered. Low dose protocols were performed. One or more of the following dose reduction techniques were used; automated exposure control, adjustment of the mA and/or KV according to patient size, use of iterative reconstruction technique. Findings: No focal liver or splenic lesions No gallstones No pancreatic or adrenal mass No renal or ureteral calculi, no hydronephrosis Aorta normal size No bowel obstruction No pericecal inflammatory change No diverticulitis Anteverted uterus No bladder mass or bladder calculi Scattered colonic diverticulosis, no diverticulitis IMPRESSION: No renal or ureteral calculi, no hydronephrosis No CT findings of appendicitis bowel obstruction or diverticulitis
--- NOTE | 2024-09-15 13:29 | XR_ITS ---
Examination: Pelvic ultrasound, transabdominal, complete Technique: Transabdominal ultrasound of the pelvis performed using grayscale imaging Date and time of exam: September 15, 2024 1342 hours INDICATIONS: Pelvic pain beginning 2 days ago FINDINGS: Uterus 8.5 cm endometrial stripe 0.7 cm No uterine mass or intrauterine gestation Right ovary 3.2 cm arterial flow. Left ovary 3.0 cm arterial flow IMPRESSION: Negative examination
--- NOTE | 2024-09-15 13:30 | PD.EDABDPN ---
ED Abdominal Pain RME/HPI General Chief Complaint: Abdominal Pain Stated complaint: Abd. pain left lower, left arm/ left leg sleepy Time seen by provider: 09/15/24 13:20 Arrival date/time: 09/15/24 13:07 29-year-old female with no known medical history presents to the emergency room with a chief complaint of left lower abdominal and pelvic pain x 3 days. Patient also states she is having some numbness to her left arm and leg. Source: patient Mode of arrival: ambulatory Limitations: no limitations Related Data Home Medications ?Medication ?Instructions ?Recorded ?Confirmed vit no.95-ferrous 1 tab PO QDAY 05/25/18 05/25/18 fumarate 28 mg-folic acid 800 mcg tablet () Previous Rx's ?Medication ?Instructions ?Recorded hydrocodone 5 mg-acetaminophen 325 1 tab PO Q6H PRN pain #10 tabs 06/01/18 mg tablet ([place]) ibuprofen 600 mg tablet 600 mg PO TID pain #20 tabs 06/01/18 acetaminophen 500 mg tablet 1,000 mg (2 x 500 mg) PO Q6H #30 11/28/23 (Tylenol Extra Strength) tabs diphenhydramine HCl 25 mg capsule 50 mg (2 x 25 mg) PO Q6H PRN 11/28/23 (Benadryl) allergy symptoms #10 caps ondansetron 4 mg disintegrating 4 mg PO Q8H PRN nausea and 11/28/23 tablet vomiting #10 tabs hydrocortisone 2.5 % topical cream 1 applic PA QDAY hemorrhoids #30 03/18/24 with perineal applicator grams (Anusol-HC) lidocaine 5 % topical ointment 1 applic topical BID PRN pain #30 03/18/24 grams cefuroxime axetil 500 mg tablet 500 mg PO BID #14 tabs 04/08/24 dicyclomine 20 mg tablet 20 mg PO TID PRN abdominal pain 04/08/24 #20 tabs albuterol sulfate 90 mcg/actuation 2 inh inhalation Q6H PRN shortness 07/22/24 aerosol inhaler of breath or wheezing #8.5 grams prednisone 50 mg tablet 50 mg PO QDAY #3 tabs 07/22/24 Allergies Allergy/AdvReac Type Severity Reaction Status Date / Time No Known Allergies Allergy Verified 06/27/25 13:13 Review of Systems Review of Systems Systems Reviewed: All systems reviewed, normal except as documented Constitutional Constitutional: Reports system reviewed and no additional complaints, except as documented, Denies fatigue, Denies fever(s), Denies headache(s) and Denies weakness Eyes Eyes: Reports system reviewed and no additional complaints, except as documented, Denies blurry vision and Denies change in vision ENT Ears, Nose, Mouth, and Throat: Reports system reviewed and no additional complaints, except as documented, Denies otalgia, Denies headache(s), Denies nasal congestion, Denies throat swelling and Denies vertigo Cardiovascular Cardiovascular: Reports system reviewed and no additional complaints, except as documented, Denies chest pain, Denies dyspnea and Denies dyspnea on exertion Respiratory Respiratory: Reports system reviewed and no additional complaints, except as documented, Denies chest congestion, Denies cough, Denies dyspnea, Denies dyspnea on exertion and Denies wheezing Gastrointestinal Gastrointestinal: Reports system reviewed and no additional complaints, except as documented, Reports abdominal pain, Reports cramping, Denies nausea and Denies vomiting Genitourinary Genitourinary: Reports system reviewed and no additional complaints, except as documented and Reports pelvic pain Musculoskeletal Musculoskeletal: Reports system reviewed and no additional complaints, except as documented and Denies back pain Integumentary/Breasts Skin/Breast: Reports system reviewed and no additional complaints, except as documented and Denies wounds Neurologic Neurologic: Reports system reviewed and no additional complaints, except as documented, Denies confusion, Denies headache(s), Denies lack of coordination, Denies vertigo and Denies weakness Psychiatric Psychiatric: Reports system reviewed and no additional complaints, except as documented, Denies anxiety, Denies confusion, Denies depression, Denies paranoia, Denies suicidal ideation and Denies tactile hallucinations Endocrine Endocrine: Reports system reviewed and no additional complaints, except as documented and Denies fatigue Hematologic/Lymphatic Hematologic/Lymphatic: Reports system reviewed and no additional complaints, except as documented and Denies lymphadenopathy Allergic/Immunologic Allergic/Immunologic: Reports system reviewed and no additional complaints, except as documented, Denies throat swelling, Denies urticaria and Denies wheezing Past Medical History Past Medical History NEUROLOGIC: Negative Neurological Disorders or Seizures CARDIAC: Negative Cardiac Disorders or Congestive Heart Failure RESPIRATORY: Negative Chronic Obstructive Pulmonary Disease (COPD) GASTROINTESTINAL: Negative Gastrointestinal Disorders GENITOURINARY: Negative Genitourinary Disorders or Renal Disease MUSCULOSKELETAL: Negative Musculoskeletal Disorders ENDOCRINE: Negative Endocrine Disorders, Diabetes Mellitus Type 1 or Diabetes Mellitus Type 2 HEMATOLOGIC: Negative Blood Disorders OTHER HISTORY: Positive Chicken Pox (as child); Negative Autoimmune Disease, Blood Transfusions, Blood Transfusion Reaction or Anesthesia Reactions Family History FAMILY HISTORY: Negative Family Psychiatric Problems, Family Respiratory Disorders, Family Cardiac Disorders, Family Gastrointestinal Problems, Family Cancer, Family Surgery or Family Anesthesia Reaction Surgical History SURGICAL: Negative Section Social History SMOKING STATUS: Current some day smoker SECOND HAND EXPOSURE: No ED Exam General Limitations: Present no limitations General appearance: Present alert and in no apparent distress Head Head exam: Present atraumatic Eye Eye exam: Present normal appearance, PERRL and EOMI ENT ENT exam: Present normal exam, normal oropharynx and mucous membranes moist Neck Neck exam: Present normal inspection, full ROM and trachea midline Chest Chest inspection: Present normal inspection and symmetric chest wall rise Respiratory Respiratory exam: Present normal lung sounds bilaterally Cardiovascular Cardiovascular exam: Present regular rate, normal rhythm and normal heart sounds Abdominal Exam Abdominal exam: Present soft, tenderness and normal bowel sounds Abdominal tenderness: Present LLQ, suprapubic and mild Extremities Exam Extremities exam: Present normal inspection and full ROM Back Exam Back exam: Present normal inspection and full ROM Neurological Exam Neurological exam: Present alert, oriented X3 and CN II-XII intact Psychiatric Psychiatric exam: Present normal affect and normal mood Skin Skin exam: Present warm, dry, intact and normal color Course Quality Measures none Orders Category Date Time Status EKG (ED ONLY) *Do not use* NOW Care 09/15/24 13:[address] abdomen pelvis wo con Stat Exams 09/15/24 13:29 Completed EKG (ED Only) Stat Exams 09/15/24 13:31 Draft US pelvic complete Stat Exams 09/15/24 13:29 Completed BNP [B-Type Natriuretic Peptide] Stat Lab 09/15/24 13:40 Completed CBC Stat Lab 09/15/24 13:40 Completed CMP [Comprehensive Metabolic Panel] Stat Lab 09/15/24 13:40 Completed HCG Qualitative,Urine Stat Lab 09/15/24 14:19 Completed Lipase Stat Lab 09/15/24 13:40 Completed Troponin I Stat Lab 09/15/24 13:40 Completed UA [Urinalysis] Stat Lab 09/15/24 14:19 Completed Urine Culture Stat Lab 09/15/24 13:29 Received Vital Signs Vital signs: Vital Signs Temperature 98.8 F 09/15/24 13:18 Pulse Rate 67 09/15/24 13:18 Respiratory Rate 20 09/15/24 13:18 Blood Pressure 126/86 H 09/15/24 13:18 Pulse Oximetry (%) 99 09/15/24 13:18 Oxygen Delivery Method Room Air 09/15/24 13:18 Abdominal Pain MDM MDM Narrative MDM Narrative:: 29-year-old female with no known medical history presents to the emergency room with a chief complaint of left lower abdominal and pelvic pain x 3 days. Patient also states she is having some numbness to her left arm and leg. Patient is hemodynamically stable and in no apparent distress Physical examination shows some left lower abdominal and pelvic pain. Patient also states she is having some numbness to her arms and legs. EKG was within normal limits. CBC CMP troponin were all negative CT of the abdomen and pelvis was negative for any acute findings. Ultrasound of the pelvis was within normal limits Patient was discharged and educated to follow-up with primary care provider in the next 24 to 48 hours and return to the emergency room for any evidence of worsening signs or symptoms Patient data External records reviewed:: [facility] previous records Clinical information provided by:: patient Social determinants that could affect healthcare access:: none Patient has the following chronic illnesses:: No chronic illness How is presenting disease/condition affected by chronic disease/condition?: no chronic disease Evaluation data The following diagnostics were reviewed and interpreted by me:: lab results and radiology exam(s) Lab and/or radiology exams considered but not ordered:: Labs and radiology exams considered and ordered Interpretation Summary: Pelvic ultrasound-FINDINGS: Uterus 8.5 cm endometrial stripe 0.7 cm No uterine mass or intrauterine gestation Right ovary 3.2 cm arterial flow. Left ovary 3.0 cm arterial flow IMPRESSION: Negative examination CT abdomen and pelvis-Findings: No focal liver or splenic lesions No gallstones No pancreatic or adrenal mass No renal or ureteral calculi, no hydronephrosis Aorta normal size No bowel obstruction No pericecal inflammatory change No diverticulitis Anteverted uterus No bladder mass or bladder calculi Scattered colonic diverticulosis, no diverticulitis IMPRESSION: No renal or ureteral calculi, no hydronephrosis No CT findings of appendicitis bowel obstruction or diverticulitis Medications / Prescriptions Medications or Prescriptions considered but not ordered:: No medication given Medication administrations:: No medication given Consultations Consultation(s) initiated? (list below): No Diagnosis Differential diagnosis abdominal pain: abdominal pain, acute appendicitis, calculus of kidney, gastroenteritis and other (Ovarian cyst) Most likely diagnosis given after review of the tests above:: Gastroenteritis Admission Indicated Admission indicated?: not indicated Admission Request Was there a request for admission?: No Disposition Plan Disposition Plan: Discharge Discharge Attestation Discharge Attestation: The patient and all family members were given an opportunity to ask questions and understood the discharge instructions. Discharge instructions specifically effects, indications for sooner follow up or return to the emergency department, and the expected course of current diagnosis. Patient condition: Stable Discharge Plan Plan Patient Disposition: HOME (Self Care) Discharge Disposition comment: Stable Prescriptions/Referrals Prescriptions/Med Rec: No Action PNV cmb#95-ferrous fumarate-FA [] 28 mg iron- 800 mcg Tablet 1 tab PO QDAY ibuprofen 600 mg tablet 600 mg PO TID MDD 6 Qty: 20 0RF hydrocodone-acetaminophen [[place]] 5-325 mg tablet 1 tab PO Q6H MDD 4 PRN (Reason: pain) Qty: 10 0RF cefuroxime axetil 500 mg tablet 500 mg PO BID Qty: 14 0RF dicyclomine 20 mg tablet 20 mg PO TID PRN (Reason: abdominal pain) Qty: 20 0RF prednisone 50 mg tablet 50 mg PO QDAY Qty: 3 0RF albuterol sulfate 90 mcg/actuation HFA aerosol inhaler 2 inh inhalation Q6H PRN (Reason: shortness of breath or wheezing) Qty: 8.5 0RF diphenhydramine HCl [Benadryl] 25 mg capsule 50 mg PO Q6H PRN (Reason: allergy symptoms) Qty: 10 0RF acetaminophen [Tylenol Extra Strength] 500 mg tablet 1,000 mg PO Q6H Qty: 30 0RF ondansetron 4 mg tablet,disintegrating 4 mg PO Q8H PRN (Reason: nausea and vomiting) Qty: 10 0RF lidocaine 5 % ointment 1 applic topical BID PRN (Reason: pain) Qty: 30 0RF hydrocortisone [Anusol-HC] 2.5 % cream with perineal applicator 1 applic PA QDAY Qty: 30 0RF Referrals: Kem Wynn MD [Primary Care Provider] - In 1 week Problem List Clinical Impression: Pelvic pain, Gastroenteritis Patient/Caregiver Discharge Instructions Education Materials: ED Gastroenteritis, Noninfectious, ED Pelvic Pain, Unknown Cause Additional Instructions: Please follow-up with your primary care provider in the next [address] of your abdomen and pelvis was completed and was negative for any acute findings. Your ultrasound was negative for any acute findings Your blood work and urinalysis were within normal limits For any evidence of worsening signs or symptoms return to the emergency room immediately Print Language: Amharic Stand Alone Forms: Layne Award Info., Patient Portal Info Letter PA/IN[employer] Supervising Physician PA/[employer] Supervising Physician: Dr. Vaughan
--- NOTE | 2024-09-15 13:31 | EKG_ITS ---
[facility] Test Date: 2024-09-15 Pat Name: ADOLFO DEL RIO Department: Room: - Gender: Female [employer]: : 1995 Requested By: Arya Jesus Order Number: [id number] Reading MD: Arya Jesus Measurements Intervals [place] Rate: 58 P: 11 [place]: 161 QRS: 3 QRSD: 94 T: 5 QT: 372 QTc: 368 Interpretive Statements SINUS BRADYCARDIA WITH MARKED SINUS ARRHYTHMIA No previous ECG available for comparison /[id number]/[email or web address]/[id number]
[2024-09-15 13:55] LABS: Basophils % (Auto) 0 % (0-2.5); Eosinophils # (Auto) 0.2 Thou/mm3 (0.0-0.5); Eosinophils % (Auto) 2 % (0-10); Hematocrit 39.6 % (36.0-46.0); Hemoglobin 13.4 g/dL (12.0-16.0); Immature Granulocytes % (Auto) 0 % (0-0); Immature Granulocytes Auto 0.02 Thou/mm3 (0.00-0.00); Lymphocytes # (Auto) 3.6 Thou/mm3 (1.0-4.8); Lymphocytes % (Auto) 38 % (10-50); Mean Corpuscular HGB Conc 33.8 g/dl (31.0-37.0); Mean Corpuscular Hemoglobin 30.6 pg (25.0-35.0); Mean Corpuscular Volume 90 fL (80-100); Monocytes # (Auto) 0.5 Thou/mm3 (0.0-0.8); Monocytes % (Auto) 5 % (0-12); Neutrophils # (Auto) 5.3 Thou/mm3 (1.8-7.7); Neutrophils % (Auto) 54 % (37-80); Nucleated Red Blood Cell % 0 /100 WBC (0); Platelet Count 348 Thou/mm3 (140-440); RDW Standard Deviation 42.1 fL (36.4-46.3); Red Blood Count 4.38 Miln/mm3 (4.00-5.20); White Blood Count 9.7 Thou/mm3 (3.6-11.0)
[2024-09-15 14:14] LABS: B-Type Natriuretic Peptide 27 pg/mL (0-100)
[2024-09-15 14:17] LABS: Alanine Aminotransferase 11 U/L (10-49); Albumin, Serum 4.3 gm/dL (3.5-5.0); Albumin/Globulin Ratio 1.4 (1.2-2.2); Alkaline Phosphatase 84 U/L (46-116); Anion Gap 9 (7-16); Aspartate Amino Transferase 13 U/L (0-34); BUN/Creatinine Ratio 11 Ratio (12-20); Bilirubin,Total 0.3 mg/dL (0.3-1.2); Blood Urea Nitrogen 8 mg/dL (9-23); Calcium 8.8 mg/dL (8.3-10.6); Calcium (Corrected) 8.8 mg/dL (8.5-10.1); Carbon Dioxide 23.4 mMol/L (20.0-31.0); Chloride 108 mMol/L (98-107); Creatinine (Component) 0.7 mg/dL (0.6-1.3); Glucose 96 mg/dL (74-106); Lipase 45 U/L (12-53); Osmolality,Calculated 277 (275-295); Potassium 4.1 mMol/L (3.4-5.1); Sodium 140 mMol/L (136-145); Total Protein 7.3 gm/dL (5.7-8.2); Troponin I < 0.002 ng/mL (0.0-0.045); eGFR > 60 See Note
[2024-09-15 14:31] LABS: Collection Type, Urine Clean Catch
[2024-09-15 14:34] LABS: HCG Qualitative,Urine Negative
[2024-09-15 14:38] LABS: Bacteria,Urine 1+; Bilirubin,Urine Negative (Negative); Blood,Urine Negative (Negative); Clarity,Urine Clear (Clear/Hazy); Color,Urine Lt-Yellow (Lt Yel-Yel); Glucose, Urine Negative (Negative); Ketones,Urine Negative (Negative); Leukocyte Esterase,Urine Negative (Negative); Nitrite,Urine Negative (Negative); PH,Urine 6.5 (5.0-7.0); Protein,Urine Negative (Neg - Trace); RBC,Urine 4 /hpf (0-3); Specific Gravity,Urine 1.022 (1.001-1.035); Squamous Epithelial Cell,Urine 7 /hpf (0-5); Urobilinogen,Urine Negative mg/dL (0.0-1.0); WBC,Urine 1 /hpf (0-5)
== END 2024-09-15 16:16 | disposition home or self-care (01) ==
PROVIDERS: Nurse Practitioner Family; Emergency Provider Emergency Medicine; PCP Family Medicine
DX: K52.9 Noninfective gastroenteritis and colitis, unspecified (principal); R10.2 Pelvic and perineal pain; I49.8 Other specified cardiac arrhythmias; R00.1 Bradycardia, unspecified
CPT/HCPCS: 36415; 74176; 76856; 80053; 81001; 81025; 83690; 83880; 84484; 85025; 87086; 93005; 99284

== ENCOUNTER 2024-11-27 12:55 | Outpatient (AMB) | payer MEDICAID, SELFPAY ==
[2024-11-27 13:04] VITALS: BP 112/81; PULSE 72; RESP 18; TEMP 36.8; O2SAT 98; BMI 37.3
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
== END 2024-11-27 13:33 | disposition home or self-care (01) ==
LOC: HODSRG 12:55
PROVIDERS: PCP Family Medicine; Referring Provider Family Medicine; Supervising Provider Surgery; Visit Provider Surgery
DX: K80.20 Calculus of gallbladder without cholecystitis without obstruction (principal)
CPT/HCPCS: 99213; G0463

== ENCOUNTER 2024-12-25 14:33 | Outpatient (AMB) | payer MEDICAID, SELFPAY ==
[2024-12-25 14:46] VITALS: BP 108/75; PULSE 63; RESP 18; TEMP 36.3; O2SAT 97; BMI 36.8
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
== END 2024-12-25 15:11 | disposition home or self-care (01) ==
LOC: HODSRG 14:33
PROVIDERS: PCP Family Medicine; Referring Provider Family Medicine; Supervising Provider Surgery; Visit Provider Surgery
DX: K80.20 Calculus of gallbladder without cholecystitis without obstruction (principal); F17.210 Nicotine dependence, cigarettes, uncomplicated; Z71.6 Tobacco abuse counseling
CPT/HCPCS: 99213; G0463

== ENCOUNTER 2025-01-10 07:00 | Day surgery (SDC) | payer MEDICAID, SELFPAY ==
[2025-01-09 06:34] VITALS: BMI 39.8
[2025-01-09 08:09] LABS: Basophils # (Auto) 0.0 Thou/mm3 (0.0-0.2); Basophils % (Auto) 1 % (0-2.5); Eosinophils # (Auto) 0.2 Thou/mm3 (0.0-0.5); Eosinophils % (Auto) 3 % (0-10); Hematocrit 38.5 % (36.0-46.0); Hemoglobin 12.7 g/dL (12.0-16.0); Immature Granulocytes Auto 0.02 Thou/mm3 (0.00-0.00); Lymphocytes # (Auto) 3.5 Thou/mm3 (1.0-4.8); Lymphocytes % (Auto) 43 % (10-50); Mean Corpuscular HGB Conc 33.0 g/dl (31.0-37.0); Mean Corpuscular Hemoglobin 29.5 pg (25.0-35.0); Mean Corpuscular Volume 89 fL (80-100); Monocytes # (Auto) 0.4 Thou/mm3 (0.0-0.8); Monocytes % (Auto) 5 % (0-12); Neutrophils # (Auto) 3.8 Thou/mm3 (1.8-7.7); Neutrophils % (Auto) 48 % (37-80); Nucleated Red Blood Cell # 0.00 Thou/mm3 (0.00-0.00); Nucleated Red Blood Cell % 0 /100 WBC (0); Platelet Count 345 Thou/mm3 (140-440); RDW Standard Deviation 45.1 fL (36.4-46.3); Red Blood Count 4.31 Miln/mm3 (4.00-5.20); White Blood Count 8.0 Thou/mm3 (3.6-11.0)
[2025-01-09 08:14] LABS: HCG,Qualitative Serum Negative
[2025-01-09 08:21] LABS: Anion Gap 11 (7-16); BUN/Creatinine Ratio 12 Ratio (12-20); Blood Urea Nitrogen 7 mg/dL (9-23); Calcium 8.6 mg/dL (8.3-10.6); Carbon Dioxide 22.2 mMol/L (20.0-31.0); Chloride 110 mMol/L (98-107); Creatinine (Component) 0.6 mg/dL (0.6-1.3); Estimated Creatinine Clearance 150.6 mL/min (>60); Glucose 102 mg/dL (74-106); Osmolality,Calculated 282 (275-295); Potassium 4.0 mMol/L (3.4-5.1); Sodium 143 mMol/L (136-145); eGFR > 60 See Note
[2025-01-09 08:37] LABS: INR 1.0 (0.9-1.3); Partial Thromboplastin Time 30.0 Seconds (22.0-36.0); Prothrombin Time 10.2 Seconds (9.0-12.2)
[2025-01-10] VITALS (8 sets, daily range): BP systolic 105–120; BP diastolic 59–74; PULSE 62–89; RESP 12–20; TEMP 36.2–36.4; O2SAT 97–100; BMI 39.6
--- NOTE | 2025-01-10 08:15 | CHAP ---
Visited with patient giving encouragement and prayer to her and her .
--- NOTE | 2025-01-10 10:33 | SUR.PHASEI ---
1033: Pt. arrived with oral airway in place, vitals stable, breathing unlabored, no signs of distress, x4 dermabond sites to ABD CDI, no active bleed noted, report received from Alla WELCH and Janet TEE.
--- NOTE | 2025-01-10 10:35 | PD.SUROPNT ---
Date of Procedure 01/10/25 Pre Op Diagnosis Symptomatic cholelithiasis Post Op Diagnosis Same Procedure Laparoscopic cholecystectomy Findings Gallbladder with stone Procedure Description After discussion of risks and benefits, patient was brought to the operating room, SCDs were placed and general anesthesia was induced. She received preoperative antibiotics and was prepped and draped in the usual sterile fashion. After timeout the supraumbilical incision was made with a #15 blade and the skin was elevated with towel clamps. A Veress needle was placed through the incision and proper placement was confirmed with a drop test. The abdomen was then insufflated to 15 mmHg. The Veress needle was exchanged for a 5 mm camera using a Visiport technique. There were no signs of injury from the point of entry. 3 additional ports were placed under direct vision, one 12 mm at the epigastrium, one 5 mm right subcostal and one 5 mm right anterior axillary line. Patient was placed in reverse Trendelenburg. The fundus of the gallbladder was grasped and retracted cephalad and the infundibulum was grasped retracted laterally. The lower third of the gallbladder was freed from the gallbladder bed using electrocautery and the hepatocystic triangle was cleared of fat and fibrous tissue using blunt dissection. The critical view of safety was achieved and the cystic duct and cystic artery were clipped and transected in the usual fashion. The gallbladder was removed from the gallbladder bed using electrocautery. The specimen was removed in an Endo Catch bag via the epigastric port and the epigastric fascia was closed with 0 Vicryl suture using a Santi-Yarely. The gallbladder bed was inspected and hemostasis was achieved with electrocautery. Pneumoperitoneum was released and ports were removed under direct vision. Incisions were irrigated and infiltrated with half percent Marcaine for a total of 30 cc. Incisions were closed with 4-0 Monocryl and reinforced with Dermabond. Patient was extubated and brought to PACU in stable condition Pathology / specimen Other (Gallbladder) Estimated Blood Loss 25 Surgeon Noris Silvestre MD Surgical Staff Operation Date: 01/10/25 09:00 Case Staff MEDICAL COLLECTIONS SPECIALIST: Alla Todd RN First Assistant: Tanya Woo
--- NOTE | 2025-01-10 10:36 | ESDS_ITS ---
Planned Discharge Date 01/10/25 DS: Providers Provider Primary care physician: Shalonda Appiah MD Attending Provider on Admission: Noris Silvestre MD Attending Provider on DC: Noris Silvestre MD Discharging Provider: Noris Silvestre MD Diagnosis Discharge Diagnosis (1) Symptomatic cholelithiasis: Status: Acute Problem List Completed Was Problem List Reviewed/Reconciled?: Yes Exam Vital Signs Temp Pulse Resp BP Pulse Ox 97.1 F 64 19 120/61 98 01/10/25 06:00 01/10/25 06:00 01/10/25 06:00 01/10/25 06:00 01/10/25 06:00 Discharge Plan Plan Patient Disposition: HOME (Self Care) Prescriptions/Referrals Prescriptions/Med Rec: New oxycodone-acetaminophen [Percocet] 5-325 mg tablet 1 tab PO Q4HR MDD 6 tabs PRN (Reason: pain) Qty: 10 0RF Rx Instructions: Take 1 tablet every 4-6 hours as needed for moderate to severe pain Referrals: Noris Silvestre MD [Physician, General Surgery] Shalonda Appiah MD [Primary Care Provider, Internal Medicine] Patient/Caregiver Discharge Instructions Other Discharge Diet Instructions: Avoid lifting objects greater than 10 pounds for 6 weeks You may resume showering in 2 days, on 01/12 At that time it is okay to get incisions wet, pat them dry after Avoid bathing or swimming for 2 weeks During the surgery we fill your abdomen with air in order to see the structures. Some of this air tends to linger and cause pain that is referred to the shoulder as well as pain with deep breaths. This will get better with time. Being out of bed and walking around helps the air to absorb faster Gradually resume your regular diet, avoiding fatty or greasy foods for the first couple weeks as they may cause pain and diarrhea If you develop worsening pain, nausea/vomiting, fever or signs of jaundice please seek care in ER Education Materials: Anesthesia: General Anesthesia, Surgery Anesthesia After, Cholecystectomy Laparoscopic Dc, Preventing Surgical Site Infections, Skin Adhesive Wound Care Instructions, [facility] General Discharge-Swiss Print Language: Swiss Stand Alone Forms: Layne Award Info., Patient Portal Info Letter Discharge Order Discharge Orders: Discharge (Routine); Ordered 01/10/25 Ordered By: Noris Silvestre Results Results: Laboratory Laboratory results: results reviewed PROCEDURES: Procedure Date 01/10/25 Procedures Laparoscopic cholecystectomy
[2025-01-10] MEDS: ONDANSETRON INJ 2 MG/ML INJ 2 ML 4 MG IVP (10:47)
[2025-01-10] MEDS: fentaNYL CIT INJ 50 mCg/ML AMP 2ML IVP ×2 (10:50→11:01)
[2025-01-10] MEDS: METOCLOPRAMIDE INJ 5 MG/ML VIAL 2 ML 10 MG IVP (10:59)
[2025-01-10] MEDS: ALBUTEROL/IPRATROPIUM (Duoneb) RT SOL 3 ML NEBU INH (11:03)
--- NOTE | 2025-01-10 11:44 | SUR.PHASEII ---
1144: Pt. AAOx4, vitals stable, breathing unlabored, no complaint of pain or nausea, x4 dermabond sites to ABD CDI, no active bleed noted, pt. tolerated bites of ice chips well, pt. ambulated to wheelchair with steady gait and no assist, no complications. Gave discharge instructions to the pt. and her ride, both verbalized understanding and had no further questions. Pt. left with all personal belongings.
== END 2025-01-10 11:44 | disposition home or self-care (01) ==
PROVIDERS: PCP Student in an Organized Health Care Education/Training Program; Referring Provider Surgery; Visit Provider Surgery
PROC: 0FT44ZZ Resection of Gallbladder, Percutaneous Endoscopic Approach (ICD-10-PCS; CPT 47562; principal; 2025-01-10 09:00)
DX: K80.10 Calculus of gallbladder with chronic cholecystitis without obstruction (principal)
CPT/HCPCS: 47562; 36415; 80048; 84703; 85025; 85610; 85730; A4217; A4649; A9270; J0131; J0694; J1100; J1885; J2405; J2704; J2765; J3010; J3490

== ENCOUNTER 2025-01-23 16:10 | Emergency (ER) | payer MEDICAID, SELFPAY ==
[2025-01-23 16:47] VITALS: BP 116/79; PULSE 58; RESP 18; TEMP 36.8; O2SAT 99; BMI 37.6
--- NOTE | 2025-01-23 16:58 | EKG_ITS ---
[facility] Test Date: 2025-01-23 Pat Name: ADOLFO DELR IO Department: Room: - Gender: Female Welt Beater: : 1995 Requested By: Fabio Mckinney (JAMEY) Order Number: [id number] Reading MD: Fabio Mckinney (TANK FARM OPERATOR) Measurements Intervals [place] Rate: 57 P: 34 AK: 166 QRS: 11 QRSD: 99 T: 30 QT: 387 QTc: 379 Interpretive Statements SINUS BRADYCARDIA WITH SINUS ARRHYTHMIA Compared to ECG 09/15/2024 13:52:55 No significant changes /store/S0/[id number].pdf
--- NOTE | 2025-01-23 16:58 | XR_ITS ---
CLINICAL INDICATION: Chest Pain Exam date and time: 01/23/2025, 5:03 p.m. TECHNIQUE: XR chest 2V COMPARISON: Chest radiograph 07/22/2024 FINDINGS: The cardiomediastinal silhouette is within normal limits. No airspace opacities suggestive of pneumonia. No mass detected. No pleural effusion or pneumothorax. No acute osseous abnormality detected. Surgical clips in the right upper quadrant are compatible with cholecystectomy. IMPRESSION: No radiographic evidence for acute cardiopulmonary abnormality. No significant interval change since the comparison study. - This report was generated utilizing speech recognition software. -
--- NOTE | 2025-01-23 16:59 | PD.EDRME ---
Rapid Medical Screening Exam [facility] Arrival date/time: 01/23/25 16:10 29-year-old female presents to the Emergency Department today for complaints of chest pain today Chief Complaint: Extremity Injury, Upper Vital signs: Vital Signs Temperature 98.3 F 01/23/25 16:47 Pulse Rate 58 L 01/23/25 16:47 Respiratory Rate 18 01/23/25 16:47 Blood Pressure 116/79 01/23/25 16:47 Pulse Oximetry (%) 99 01/23/25 16:47 Oxygen Delivery Method Room Air 01/23/25 16:47 Exam: On exam patient well-appearing patient does not appear toxic acute distress On exam patient hemodynamically stable Heart and lung sounds are clear Clinical Impression: Labs and imaging ordered
[2025-01-23 17:38] LABS: Basophils # (Auto) 0.1 Thou/mm3 (0.0-0.2); Basophils % (Auto) 1 % (0-2.5); Eosinophils # (Auto) 0.5 Thou/mm3 (0.0-0.5); Eosinophils % (Auto) 5 % (0-10); Hematocrit 40.4 % (36.0-46.0); Hemoglobin 13.0 g/dL (12.0-16.0); Immature Granulocytes Auto 0.03 Thou/mm3 (0.00-0.00); Lymphocytes # (Auto) 4.5 Thou/mm3 (1.0-4.8); Lymphocytes % (Auto) 41 % (10-50); Mean Corpuscular HGB Conc 32.2 g/dl (31.0-37.0); Mean Corpuscular Hemoglobin 28.9 pg (25.0-35.0); Mean Corpuscular Volume 90 fL (80-100); Monocytes # (Auto) 0.6 Thou/mm3 (0.0-0.8); Monocytes % (Auto) 6 % (0-12); Neutrophils # (Auto) 5.2 Thou/mm3 (1.8-7.7); Neutrophils % (Auto) 48 % (37-80); Nucleated Red Blood Cell # 0.00 Thou/mm3 (0.00-0.00); Nucleated Red Blood Cell % 0 /100 WBC (0); Platelet Count 369 Thou/mm3 (140-440); RDW Standard Deviation 45.0 fL (36.4-46.3); Red Blood Count 4.50 Miln/mm3 (4.00-5.20); White Blood Count 11.0 Thou/mm3 (3.6-11.0)
[2025-01-23 17:50] LABS: HCG,Qualitative Serum Negative
[2025-01-23 18:12] LABS: Alanine Aminotransferase 9 U/L (10-49); Albumin, Serum 4.7 gm/dL (3.5-5.0); Albumin/Globulin Ratio 1.9 (1.2-2.2); Alkaline Phosphatase 89 U/L (46-116); Anion Gap 11 (7-16); Aspartate Amino Transferase 16 U/L (0-34); BUN/Creatinine Ratio 8 Ratio (12-20); Bilirubin,Total 0.2 mg/dL (0.3-1.2); Blood Urea Nitrogen 6 mg/dL (9-23); Calcium 9.2 mg/dL (8.3-10.6); Calcium (Corrected) 9.2 mg/dL (8.5-10.1); Carbon Dioxide 23.4 mMol/L (20.0-31.0); Chloride 108 mMol/L (98-107); Creatinine (Component) 0.8 mg/dL (0.6-1.3); Estimated Creatinine Clearance 109.5 mL/min (>60); Globulin 2.5 gm/dL (2.3-3.5); Glucose 92 mg/dL (74-106); Lipase 48 U/L (12-53); Osmolality,Calculated 280 (275-295); Potassium 3.8 mMol/L (3.4-5.1); Sodium 142 mMol/L (136-145); Total Protein 7.2 gm/dL (5.7-8.2); Troponin I < 0.002 ng/mL (0.0-0.045); eGFR > 60 See Note
[2025-01-23 22:09] VITALS: BP 140/87; PULSE 52; RESP 18; O2SAT 100
--- NOTE | 2025-01-23 22:16 | EDNOTE_ITS ---
Upper Extremity Injury RME/HPI General Chief Complaint: Extremity Injury, Upper Stated Complaint: L) ARM/SHOULDER PAIN Time Seen by Provider: 01/23/25 22:16 Arrival date/time: 01/23/25 16:10 RME / HPI RME / HPI narrative: 01/23/25 16:10 29-year-old female presents to the Emergency Department today for complaints of chest pain today --------- Dr. Poole?s Main ED Evaluation: 29yo female with no significant past medical history presents to the ED for a chief complaint of left shoulder pain that radiates to her neck x this morning. Patient denies any falls or trauma. Denies any chest pain or any other associated symptoms. Denies any history of similar symptoms. NKA. Related Data Previous Rx's ?Medication ?Instructions ?Recorded oxycodone-acetaminophen 5 mg-325 1 tab PO Q4HR PRN remigio n #10 tabs 01/10/25 mg tablet (Percocet) Allergies Allergy/AdvReac Type Severity Reaction Status Date / Time No Known Allergies Allergy Verified 01/23/25 16:15 Review of Systems Review of Systems Systems Reviewed: All systems reviewed, normal except as documented Past Medical History Past Medical History NEUROLOGIC: Negative Neurological Disorders or Seizures CARDIAC: Negative Cardiac Disorders or Congestive Heart Failure RESPIRATORY: Positive Asthma; Negative Chronic Obstructive Pulmonary Disease (COPD) GASTROINTESTINAL: Positive Gastrointestinal Disorders, Gall Bladder Disease, Irritable Bowel and Obesity; Negative Hepatitis GENITOURINARY: Negative Genitourinary Disorders or Renal Disease REPRODUCTIVE: Positive Previous Pregnancies MUSCULOSKELETAL: Negative Musculoskeletal Disorders ENDOCRINE: Negative Endocrine Disorders, Diabetes Mellitus Type 1 or Diabetes Mellitus Type 2 HEMATOLOGIC: Negative Blood Disorders OTHER HISTORY: Positive Chicken Pox; Negative Hospitalization, Autoimmune Disease, Shingles, Blood Transfusions, Blood Transfusion Reaction, Anesthesia Reactions or Cancer Family History FAMILY HISTORY: Positive Family Cardiac Disorders; Negative Family Psychiatric Problems, Family Respiratory Disorders, Family Gastrointestinal Problems, Family Cancer, Family Surgery or Family Anesthesia Reaction Surgical History SURGICAL: Positive Section (x3) Social History SMOKING STATUS: Never smoker SECOND HAND EXPOSURE: No ED Exam Narrative Physical exam: Generally patient is alert in no obvious distress, heart regular rate and rhythm, lungs clear to auscultation equal bilaterally, abdomen soft bowel sounds present on send nontender, extremities show tenderness to the anterior shoulder and left lateral portion of the neck. Neck is nontender to head compression. Shoulder is nontender to flexion and extension and abduction of the left shoulder. Course Quality Measures none Orders Category Date Time Status EKG (ED ONLY) *Do not use* NOW Care 01/23/25 16:58 Completed EKG (ED Only) Stat Exams 01/23/25 16:58 Draft XR chest 2V Stat Exams 01/23/25 16:58 Completed CBC Stat Lab 01/23/25 17:14 Completed Comprehensive Metabolic Panel Stat Lab 01/23/25 17:14 Completed HCG,Qualitative Serum Stat Lab 01/23/25 17:14 Completed Lipase Stat Lab 01/23/25 17:14 Completed Troponin I Stat Lab 01/23/25 17:14 Completed Vital Signs Vital signs: Vital Signs Temperature 98.3 F 01/23/25 16:47 Pulse Rate 58 L 01/23/25 16:47 Respiratory Rate 18 01/23/25 16:47 Blood Pressure 116/79 01/23/25 16:47 Pulse Oximetry (%) 99 01/23/25 16:47 Oxygen Delivery Method Room Air 01/23/25 16:47 Extremity Injury MDM Narrative MDM Narrative:: Scribe Attestation: 01/23/25 - Edith Elder am scribing for and in the presence of Dr. Poole. Chest x-ray is normal. Troponin is not elevated. EKG obtained at 5:03 PM shows sinus bradycardia at a rate of 57 with a sinus arrhythmia and without ischemic pain. I do not believe this patient to be suffering from ischemic cardiac pain. She may take ibuprofen at home. Follow-up with her doctor as needed for further treatment and evaluation. Patient data External records reviewed:: [facility] previous records (Per chart review, patient was seen here on 07/22/24 for shortness of breath.) Clinical information provided by:: patient Social determinants that could affect healthcare access:: none Patient has the following chronic illnesses:: none How is presenting disease/condition affected by chronic disease/condition?: no chronic disease Evaluation data The following diagnostics were reviewed and interpreted by me:: lab results, radiology exam(s) and EKG tracing(s) Lab and/or radiology exams considered but not ordered:: none Interpretation Summary: [facility] Report Signed Patient: ADOLFO DEL RIO [facility]. Record#: [id number] Birthdate: 1995 Age/Sex: 29 / F Location: [facility] Attending Dr: Ordering Physician: Faye (JAMEY)Fabio NP Date of Service: 01/23/25 Procedure(s): XR chest 2V Accession Number(s): [id number] cc: Faye (JAMEY),Fabio CONCEPCION; Melvin Piña DO~ CLINICAL INDICATION: Chest Pain Exam date and time: 01/23/2025, 5:03 p.m. TECHNIQUE: XR chest 2V COMPARISON: Chest radiograph 07/22/2024 FINDINGS: The cardiomediastinal silhouette is within normal limits. No airspace opacities suggestive of pneumonia. No mass detected. No pleural effusion or pneumothorax. No acute osseous abnormality detected. Surgical clips in the right upper quadrant are compatible with cholecystectomy. IMPRESSION: No radiographic evidence for acute cardiopulmonary abnormality. No significant interval change since the comparison study. - This report was generated utilizing speech recognition software. - Dictated By: Melvin Piña DO Signed By: <Electronically signed by Melvin Piña DO in OV> 01/23/25 1712 Medications / Prescriptions Medications or Prescriptions considered but not ordered:: none Medication administrations:: none Consultations Consultation(s) initiated? (list below): No Diagnosis Upper Extremity Injury Differential Diagnosis: other (See MDM) Most likely diagnosis given after review of the tests above:: see clinical impression below Admission Indicated Admission indicated?: not indicated Admission Request Was there a request for admission?: No Disposition Plan Disposition Plan: Discharge Discharge Attestation Discharge Attestation: The patient and all family members were given an opportunity to ask questions and understood the discharge instructions. Discharge instructions specifically effects, indications for sooner follow up or return to the emergency department, and the expected course of current diagnosis. Patient condition: Stable Discharge Plan Plan Patient Disposition: HOME (Self Care) Prescriptions/Referrals Prescriptions/Med Rec: No Action oxycodone-acetaminophen [Percocet] 5-325 mg tablet 1 tab PO Q4HR MDD 6 tabs PRN (Reason: pain) Qty: 10 0RF Rx Instructions: Take 1 tablet every 4-6 hours as needed for moderate to severe pain Referrals: Shalonda Appiah MD [Primary Care Provider, Internal Medicine] - In 1 week Problem List Clinical Impression: Musculoskeletal pain Patient/Caregiver Discharge Instructions Additional Instructions: You may take 800 mg of ibuprofen every 8 hours as needed for pain. Follow-up with your doctor as needed for further treatment and evaluation. Print Language: [place] Stand Alone Forms: [facility]ne Award Info., Patient Portal Info Letter
== END 2025-01-23 22:29 | disposition home or self-care (01) ==
PROVIDERS: Nurse Practitioner Primary Care; Emergency Provider Emergency Medicine; PCP Student in an Organized Health Care Education/Training Program
DX: R07.9 Chest pain, unspecified (principal)
CPT/HCPCS: 36415; 71046; 80053; 83690; 84484; 84703; 85025; 93005; 99283

== ENCOUNTER 2025-01-26 09:36 | Outpatient (AMB) | payer MEDICAID, SELFPAY ==
[2025-01-26 09:46] VITALS: BP 104/67; PULSE 47; RESP 18; TEMP 36.3; O2SAT 98; BMI 38.8
--- NOTE | 2025-01-26 09:46 | PD.GSCLVISIT ---
Vital Signs - [facility] 01/26/25 09:46 Height 1.57 m Height Method Measured Weight 95.708 kg Weight Measurement Method Standing Scale BMI 38.8 BP 104/67 Blood Pressure Source Automatic Cuff Blood Pressure Location Left Upper Arm Position Sitting Respiration 18 Pulse 47 L Pulse Source Monitor Temp 97.3 F Temp Source Temporal Artery Scan Pulse Oximetry (%) 98 Oxygen Delivery Method Room Air Med/Allergies Allergies & Medications Allergies No Known Allergies Allergy (Verified 01/26/25 09:47) Medication Reconciliation oxycodone-acetaminophen 5 mg-325 mg tablet (Percocet) 1 tab PO Q4HR PRN pain #10 tabs 01/10/25 [Rx Confirmed 01/26/25] MA Intake Visit Data Collection New Patient or Established: Established Patient (seen at [facility] within 3 years) Seen by Clinical Staff ONLY (RN/MA): No Reason for Visit:: POST OP LAP CHANDLER Pain Present Currently: No Pain Scale Used: Peng-Ramon/Numerical Records And Information Manager Required: Yes PCP or OBGYN visit in last 3 months: Yes Hx Now: No Do You Feel Safe at Home: Yes Authorities Contacted: N/A Smoking Status Smoking Status: Never smoker Immunization / Flu Flu Vaccine in the Last 12 Months: Yes Flu Vaccine Exclusion Criteria: Already Received Past Medical History Past Medical History NEUROLOGIC: Negative Neurological Disorders or Seizures CARDIAC: Negative Cardiac Disorders or Congestive Heart Failure RESPIRATORY: Positive Asthma; Negative Chronic Obstructive Pulmonary Disease (COPD) GASTROINTESTINAL: Positive Gastrointestinal Disorders, Gall Bladder Disease, Irritable Bowel and Obesity; Negative Hepatitis GENITOURINARY: Negative Genitourinary Disorders or Renal Disease REPRODUCTIVE: Positive Previous Pregnancies ENDOCRINE: Negative Endocrine Disorders, Diabetes Mellitus Type 1 or Diabetes Mellitus Type 2 HEMATOLOGIC: Negative Blood Disorders OTHER HISTORY: Positive Chicken Pox; Negative Hospitalization, Autoimmune Disease, Shingles, Blood Transfusions, Blood Transfusion Reaction, Anesthesia Reactions or Cancer Family History FAMILY HISTORY: Positive Family Cardiac Disorders; Negative Family Psychiatric Problems, Family Respiratory Disorders, Family Gastrointestinal Problems, Family Cancer, Family Surgery or Family Anesthesia Reaction Surgical History SURGICAL: Positive Section (x3) Social History SMOKING STATUS: Smoking status: Never smoker SECOND HAND EXPOSURE: second hand exposure: No ALCOHOL: Alcohol Intake: Current HOUSING: Housing: Apartment LIVES WITH: Lives With: Family HPI HPI Narrative Spoke to pt with in-person staff interpreter 29F s/p lap chandler 01/10 for symptomatic cholelithiasis here for planned follow up. Pt reports feeling very well, with no pain, no nausea or fever; she is eating well without any difficulties and denies any diarrhea ROS Review of Systems Systems Reviewed: All systems reviewed, normal except as documented Objective/Exam General General Appearance: alert, cooperative and well groomed Resp Respiratory exam: Absent respiratory distress Abdominal Abdominal exam: Present soft and incision (c/d/i, no erythema, no fluctuance or tenderness); Absent distention or tenderness Results Pathology of gallbladder reviewed Assessment & Plan Diagnosis / Problem List (1) Symptomatic cholelithiasis: Status: Acute Assessment & Plan: 29F s/p lap chandler 01/10 for symptomatic cholelithiasis here for planned follow up, recovering well overall. I recommended avoiding strenuous activity including lifting objects >10lbs for 6 weeks postop. All questions were answered and pt expressed understanding Office Procedures GNS Level of Care Nursing/Assessment Patient Status: Established Patient Nursing Assessment/Reassesment: Medication Reconciliation, Update PMH in EMR and Vital Signs Coordination of Care: Complex Care and Chronic Disease 1-5, Education Complex Pt/Fam, Consent,records obtained, informed consent, Results/Orders obtained and Staff clarify orders Established Patient Charge Established Patient Point Assignment: 95 Established Patient Point Charge: EP Level 3 (80-115) Patient Portal Questionaires Social History Living Situation History Housing: Apartment Tobacco History Smoking Status: Never smoker Second Hand Smoke Exposure: No Alcohol History Alcohol Intake: Current Domestic Abuse History Do You Feel Safe at Home: Yes Review of Systems Report any current symptoms Only answer those that you have currently: Past Medical History Past Medical History Have you ever been diagnosed with any of the following: Neurological Problems Seizures: No Cardiology Problems Congestive Heart Failure: No Respiratory Problems Chronic Obstructive Pulmonary Disease (COPD): No Asthma: Yes Stomache/Intestinal Problems Hepatitis: No Gall Bladder Disease: Yes Irritable Bowel: Yes Obesity: Yes Genital/Urinary Problems Renal Disease: No Reproductive Problems Previous Pregnancies: Yes Endocrine Problems Diabetes Mellitus Type 1: No Diabetes Mellitus Type 2: No Other Problems Hospitalization: No Autoimmune Disease: No Shingles: No Blood Transfusions: No Blood Transfusion Reaction: No Anesthesia Reactions: No Chicken Pox: Yes Cancer: No
== END 2025-01-26 09:56 | disposition home or self-care (01) ==
LOC: HODSRG 09:36
PROVIDERS: PCP Family Medicine; Referring Provider Family Medicine; Supervising Provider Surgery; Visit Provider Surgery
DX: K80.20 Calculus of gallbladder without cholecystitis without obstruction (principal)
CPT/HCPCS: 99213; G0463